=== PATIENT | female | born 1965 | race Caucasian/White ===

== ENCOUNTER → 2020-05-04 13:20 | Outpatient (CLI) | payer OTHER, MEDICAID, SELFPAY ==
--- NOTE | 2020-05-04 | DI.CT.S_ITS ---
PROCEDURE: CT UE RT WO CON INDICATIONS: PRIMARY OSTEOARTHRITIS, RIGHT SHOULDER TECHNIQUE: Noncontrast 1-1.5 mm thick sections acquired from the acromioclavicular joint to the inferior scapula, with coronal and sagittal reformatting. COMPARISON: None. FINDINGS: Image quality: Excellent. Bones: No fracture or bone lesion identified. There is, however, moderately severe degenerative osteoarthritic change at the glenohumeral and acromioclavicular joints. At the glenohumeral articulation there is near [id number] articulation with joint interspace measuring approximately 1 mm in maximal thickness. No effusion or intra-articular loose body is seen. Soft tissues: No abnormality found except for mild to moderate fibrous hypertrophy at the a.c. joint associated with the moderate osteoarthritis in that area. This results in narrowing of the interspace through which the supraspinatus courses, with likelihood of chronic impingement. IMPRESSION: Moderately severe to severe shoulder joint osteoarthritis most pronounced at the glenohumeral articulation. Fibrous hypertrophy projecting from the degenerated a.c. joint likely produces significant impingement against the normal course of the supraspinatus tendon portion of the rotator cuff. Dictated by: Markell Davidson M.D. on 05/04/2020 at 14:38 Approved by: Markell Davidson M.D. on 05/04/2020 at 14:42
== END ==
PROVIDERS: Referring Provider Orthopaedic Surgery; Visit Provider Orthopaedic Surgery
DX: M19.011 Primary osteoarthritis, right shoulder (principal)
CPT/HCPCS: 73200

== ENCOUNTER → 2020-06-22 13:35 | Outpatient (CLI) | payer OTHER, MEDICAID, SELFPAY ==
--- NOTE | 2020-06-22 | DI.MRI.S_ITS ---
PROCEDURE: MR SHOULDER RT WO CON INDICATIONS: Idiopathic aseptic necrosis of right shoulder TECHNIQUE: Noncontrast oblique coronal T2 fast spin echo with fat saturation, oblique sagittal T1 spin echo and T2 fast spin echo with fat saturation, axial T1 spin echo and T2 fast spin echo with fat saturation through the shoulder. COMPARISON: None. FINDINGS: Image quality: Suboptimal due to motion artifact and body habitus. Rotator cuff: Partial thickness articular sided tear of the supraspinatus critical zone probably less than 50% of tendon thickness. There is also low-grade bursal surface fraying of the supraspinatus tendon. No definite full-thickness or retracted defect identified. The infraspinatus tendon is not well seen, probably thickened although limited evaluation due to motion artifact. Teres minor appears intact. Subscapularis tendinopathy and mild thickening. No definite atrophy of the rotator cuff muscles. Fatty infiltration of the supraspinatus and infraspinatus muscles. Bones and bursae: No bone marrow contusions or fractures. Moderate acromioclavicular joint degeneration. Severe glenohumeral joint degeneration. Acromion demonstrates conventional anatomy, without an os acromiale. Mild subacromial-subdeltoid bursitis. Capsule and soft tissues: Labrum: Incidental sublabral foramen. Circumferential fraying of the labrum is present without definite intrasubstance fluid signal intensity.. Long head of the biceps tendon intact. Partial obliteration of the subcoracoid fat. Coracohumeral ligament intact. IMPRESSION: Partial-thickness articular sided tear of the supraspinatus tendon at the critical zone. Additional low-grade bursal surface fraying of the supraspinatus Infraspinatus and subscapularis tendinopathy. Suboptimal evaluation given motion artifact and patient body habitus. Severe osteoarthritis. Mild subacromial-subdeltoid bursitis Circumferential probably chronic/degenerative fraying of the labrum. Dictated by: Giovani Lozoya M.D. on 06/22/2020 at 15:10 Approved by: Giovani Lozoya M.D. on 06/22/2020 at 15:25
== END ==
PROVIDERS: Referring Provider Orthopaedic Surgery; Visit Provider Orthopaedic Surgery
DX: M87.011 Idiopathic aseptic necrosis of right shoulder (principal); M75.111 Incomplete rotator cuff tear or rupture of right shoulder, not specified as traumatic; M19.011 Primary osteoarthritis, right shoulder; M75.51 Bursitis of right shoulder
CPT/HCPCS: 73221

== ENCOUNTER 2021-10-17 10:30 | Outpatient (RCR) | payer OTHER, MEDICAID, SELFPAY ==
--- NOTE | 2021-07-05 16:00 | PT.OPPOC ---
Physical, Occupational & Speech Therapy At [facility] Current Diagnoses Primary osteoarthritis, right shoulder (07/05/21) Other specific joint derangements of unspecified shoulder, not elsewhere classified (07/05/21) Incomplete rotator cuff tear or rupture of right shoulder, not specified as traumatic (07/05/21) Visit Care Team Role Provider Type Cliff Murphy MD Attending Provider Non-Staff Family Provider Primary Care Provider Referring Provider Specialty: Family Practice Address: [address] [place] [address], [id number] Email: Plan Of Care PT-OP-T Assessment and Plan Start: 07/01/21 10:42 Freq: Status: Active Protocol: Document 07/05/21 13:00 AMB (Rec: 07/06/21 10:35 AMB [email or web address]) Physical Therapy Assessment Rehab Potential Rehabilitation Potential Good Evaluation Complexity Number of Personal Factors/Comorbidities 1-2 Number of Body Systems Impaired 3 Clinical Presentation at Evaluation Evolving Impairments Impairments Functional Activities,Pain,ROM ,Strength Goals Two Impairment shoulder ROM limited Short Term Goal (STG) Snehal will improve her shoulder PROM flexion to 130 degrees. STG Duration 4 weeks Usp Goal (LTG) Snehal will improve her shoulder AROM flexion to 130 degrees so that she can reach for objects above her head without pain. LTG Duration 8 weeks One Impairment Centrifugal Separator weakness Short Term Goal (STG) Snehal will improve her R engineering assistant strength to 30#. STG Duration 4 weeks Usp Goal (LTG) Snehal will improve her engineering assistant strength so that she can hold her phone without dropping it. LTG Duration 8 weeks Assessment Summary Assessment The patient appears to have a developmental disability and there was limited information available to review and she was unable to provide a detailed history into her right shoulder pain. This therapist was able to review a MRI from a year ago which was ordered for aseptic necrosis of right shoulder. Overall she is very limited in her shoulder range and strength. She denies neck history or carpal tunnel history but her engineering assistant strength is extremely limited and she complains of whole hand going to sleep that is quite limiting. Extensive time during evaluation was spent helping patient fill out paperwork necessary for her insurance to authorize further treatment, so a full evaluation was not performed due to time restrictions. She will benefit from physical therapy for further evaluation of her hand weakness/tingling and to progress exercises to improve her right shoulder range of motion and strength. Physical Therapy Plan Frequency and Duration Frequency of Treatment 2x/Week Duration of Treatment 8 weeks Plan of Care Start Date 07/05/21 Plan of Care End Date 08/30/21 Therapeutic Interventions Therapeutic Interventions Home Exercise Program,Manual Therapy,Neuromuscular Re- education,Self-Care/Home Management,Therapeutic Activities,Therapeutic Exercises Modalities Cold Pack/Ice Massage,Electric Stimulation,Hot Packs Next Visit Focus/Plan Next Note Type Treatment Note Next Visit Plan Establish HEP focusing on GH ROM first/ AAROM, pendulums? Plan of Care Dates Plan of Care Start Date 07/05/21 Plan of Care End Date 08/30/21 Electronically Signed by: Patricia Van, PT 07/06/21 1038 Please Sign and Return: I have reviewed this Plan of Care and certify that the skilled therapy services above are required to meet the patient?s needs. Physician Signature Date Printed Name and Credentials Clinical Instructor Signature Printed Name and Credentials
--- NOTE | 2021-07-05 16:00 | PT.OIE ---
Current Diagnoses Primary osteoarthritis, right shoulder (07/05/21) Other specific joint derangements of unspecified shoulder, not elsewhere classified (07/05/21) Incomplete rotator cuff tear or rupture of right shoulder, not specified as traumatic (07/05/21) Visit Care Team Role Provider Type Cliff Murphy MD Attending Provider Non-Staff Family Provider Primary Care Provider Referring Provider Specialty: Family Practice Address: [address] [place] [address] Email: Physical Therapy Initial Evaluation PT-OP-A Visit Information Start: 07/01/21 10:42 Freq: Status: Active Protocol: Document 07/05/21 13:00 AMB (Rec: 07/06/21 09:03 AMB [email or web address]) Out-Patient Physical Therapy Visit Information Visit Information Visit Type Initial Evaluation Visit Start Time 13:00 Visit Stop Time 13:45 Total Visit Minutes 45 Visit Number 1 PT-OP-B Current Condition Start: 07/01/21 10:42 Freq: Status: Active Protocol: Document 07/05/21 12:58 AMB (Rec: 07/05/21 13:33 AMB [id number]) Current Condition History of Current Condition Onset Date ~2018, pt unsure Current Complaints R shoulder History of Current Condition Pain started a couple of years ago after hip replacements and using the walker more. Feels like it got a bit better with taking tylenol. Reports intermittent tingling from the shoulder down in the hand, puts the hand to sleep limited with gripping because of that. Pt does have a caregiver who drives for her, helps her with dressing/ bathing. RHD. Pt has a difficult time providing a history and attends the appointment without her caregiver or any family. Prior Treatments and Tests MRI 06/17 showed partial thickness supraspinatus tear, severe osteoarthritis, mild bursitis, fraying of the labrum, infraspinatus and sbuscapularis tendonopathy. Treatment Goals Patient/Caregiver Goals Pt would like to sweet pickle maker something heavier than a glass of water, be able to put on clothes easier. Personal Factors Other Personal Factors That May Effect R and L THAs, asthma, Therapy/Recovery PT-OP-C Subjective Start: 07/01/21 10:42 Freq: Status: Active Protocol: Document 07/05/21 13:00 AMB (Rec: 07/06/21 10:14 AMB [email or web address]) Patient Questionnaires Quick Dash- Upper Extremity Quick Dash UE Score 66 Quick Dash UE Impairment 60 to 79% Impaired (Score 60- 79) PT-OP-G Mobility & Gait Start: 07/01/21 10:42 Freq: Status: Active Protocol: Document 07/05/21 13:00 AMB (Rec: 07/06/21 10:36 AMB [email or web address]) OP Gait Assessment Comments Gait Comments Magdalena ambulates with bilateral walking sticks, she states this does not increase her shoulder pain. PT-OP-J Posture/Palpation/Skin Start: 07/01/21 10:42 Freq: Status: Active Protocol: Document 07/05/21 13:00 AMB (Rec: 07/06/21 10:14 AMB [email or web address]) Palpation Assessment Location One Palpation Location R shoulder Palpation Findings Muscle Guarding,Tenderness Palpation Details Tenderness throughout shoulder mostly at anterior shoulder PT-OP-K Range of Motion Start: 07/01/21 10:42 Freq: Status: Active Protocol: Document 07/05/21 13:00 AMB (Rec: 07/06/21 10:14 AMB [email or web address]) Shoulder Goniometric Range of Motion Shoulder Right Active Testing Position Sitting Flexion 70 Extension 40 Abduction 40 Left Active Shoulder ROM WFL Yes Testing Position Sitting Right Passive Testing Position HOB elevated Flexion 90 Abduction 45 External Rotation at 45 degrees 5 Abduction Internal Rotation 70 PT-OP-M Strength Start: 07/01/21 10:42 Freq: Status: Active Protocol: Document 07/05/21 13:00 AMB (Rec: 07/06/21 10:15 AMB [email or web address]) Hand Director Regulatory Affairs/Pinch Strength Hand Dominance Hand Dominance Right Hand Strength Right Director Regulatory Affairs (lbs) 0 PT-OP-T Assessment and Plan Start: 07/01/21 10:42 Freq: Status: Active Protocol: Document 07/05/21 13:00 AMB (Rec: 07/06/21 10:35 AMB [email or web address]) Physical Therapy Assessment Rehab Potential Rehabilitation Potential Good Evaluation Complexity Number of Personal Factors/Comorbidities 1-2 Number of Body Systems Impaired 3 Clinical Presentation at Evaluation Evolving Impairments Impairments Functional Activities,Pain,ROM ,Strength Goals Two Impairment shoulder ROM limited Short Term Goal (STG) Snehal will improve her shoulder PROM flexion to 130 degrees. STG Duration 4 weeks Glass Embosser Goal (LTG) Snehal will improve her shoulder AROM flexion to 130 degrees so that she can reach for objects above her head without pain. LTG Duration 8 weeks One Impairment Director Regulatory Affairs weakness Short Term Goal (STG) Snehal will improve her R education intern strength to 30#. STG Duration 4 weeks Residential Goal (LTG) Snehal will improve her education intern strength so that she can hold her phone without dropping it. LTG Duration 8 weeks Assessment Summary Assessment The patient appears to have a developmental disability and there was limited information available to review and she was unable to provide a detailed history into her right shoulder pain. This therapist was able to review a MRI from a year ago which was ordered for aseptic necrosis of right shoulder. Overall she is very limited in her shoulder range and strength. She denies neck history or carpal tunnel history but her education intern strength is extremely limited and she complains of whole hand going to sleep that is quite limiting. Extensive time during evaluation was spent helping patient fill out paperwork necessary for her insurance to authorize further treatment, so a full evaluation was not performed due to time restrictions. She will benefit from physical therapy for further evaluation of her hand weakness/tingling and to progress exercises to improve her right shoulder range of motion and strength. Physical Therapy Plan Frequency and Duration Frequency of Treatment 2x/Week Duration of Treatment 8 weeks Plan of Care Start Date 07/05/21 Plan of Care End Date 08/30/21 Therapeutic Interventions Therapeutic Interventions Home Exercise Program,Manual Therapy,Neuromuscular Re- education,Self-Care/Home Management,Therapeutic Activities,Therapeutic Exercises Modalities Cold Pack/Ice Massage,Electric Stimulation,Hot Packs Next Visit Focus/Plan Next Note Type Treatment Note Next Visit Plan Establish HEP focusing on GH ROM first/ AAROM, pendulums?
--- NOTE | 2021-07-11 13:47 | PT.OTN ---
Current Diagnoses Primary osteoarthritis, right shoulder (07/11/21) Other specific joint derangements of unspecified shoulder, not elsewhere classified (07/11/21) Incomplete rotator cuff tear or rupture of right shoulder, not specified as traumatic (07/11/21) Physical Therapy Treatment Note PT-OP-A Visit Information Start: 07/01/21 10:42 Freq: Status: Active Protocol: Document 07/11/21 13:04 SP (Rec: 07/11/21 13:48 SP [id number]) Out-Patient Physical Therapy Visit Information Visit Information Visit Type Treatment Note Visit Start Time 13:04 Visit Stop Time 13:47 Total Visit Minutes 43 Visit Number 2 Number of FIELD SEISMOLOGIST Visits 1 PT-OP-B Current Condition Start: 07/01/21 10:42 Freq: Status: Active Protocol: Document 07/05/21 12:58 AMB (Rec: 07/05/21 13:33 AMB [id number]) Current Condition History of Current Condition Onset Date ~2018, pt unsure Current Complaints R shoulder History of Current Condition Pain started a couple of years ago after hip replacements and using the walker more. Feels like it got a bit better with taking tylenol. Reports intermittent tingling from the shoulder down in the hand, puts the hand to sleep limited with gripping because of that. Pt does have a caregiver who drives for her, helps her with dressing/ bathing. RHD. Pt has a difficult time providing a history and attends the appointment without her caregiver or any family. Prior Treatments and Tests MRI 06/17 showed partial thickness supraspinatus tear, severe osteoarthritis, mild bursitis, fraying of the labrum, infraspinatus and sbuscapularis tendonopathy. 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 Personal Factors Other Personal Factors That May Effect R and L THAs, asthma, Therapy/Recovery PT-OP-C Subjective Start: 07/01/21 10:42 Freq: Status: Active Protocol: Document 07/11/21 13:04 SP (Rec: 07/11/21 13:48 SP [id number]) OP-PT Subjective Patient Comments Patient Comments Pt states has a caregiver that drives her and needs paper signed stating attended tx for her caregiver to be pain for mileage. Pt reports doesn't do well laying down, has to sleep on wedge and pillows due to congestion and hard time breathing. PT-OP-G Mobility & Gait Start: 07/01/21 10:42 Freq: Status: Active Protocol: Document 07/05/21 13:00 AMB (Rec: 07/06/21 10:36 AMB [email or web address]) OP Gait Assessment Comments Gait Comments Magdalena ambulates with bilateral walking sticks, she states this does not increase her shoulder pain. PT-OP-J Posture/Palpation/Skin Start: 07/01/21 10:42 Freq: Status: Active Protocol: Document 07/05/21 13:00 AMB (Rec: 07/06/21 10:14 AMB [email or web address]) Palpation Assessment Location One Palpation Location R shoulder Palpation Findings Muscle Guarding,Tenderness Palpation Details Tenderness throughout shoulder mostly at anterior shoulder PT-OP-K Range of Motion Start: 07/01/21 10:42 Freq: Status: Active Protocol: Document 07/05/21 13:00 AMB (Rec: 07/06/21 10:14 AMB [email or web address]) Shoulder Goniometric Range of Motion Shoulder Right Active Testing Position Sitting Flexion 70 Extension 40 Abduction 40 Left Active Shoulder ROM WFL Yes Testing Position Sitting Right Passive Testing Position HOB elevated Flexion 90 Abduction 45 External Rotation at 45 degrees 5 Abduction Internal Rotation 70 PT-OP-M Strength Start: 07/01/21 10:42 Freq: Status: Active Protocol: Document 07/05/21 13:00 AMB (Rec: 07/06/21 10:15 AMB [email or web address]) Hand Customer Service Receptionist/Pinch Strength Hand Dominance Hand Dominance Right Hand Strength Right Customer Service Receptionist (lbs) 0 PT-OP-Q Treatments Start: 07/01/21 10:42 Freq: Status: Active Protocol: Document 07/11/21 13:04 SP (Rec: 07/11/21 13:48 SP [id number]) Therapeutic Exercises Sitting Exercises protraction wand Side bilateral Resistance AAROM Equipment Used trek poles Reps/Minutes 5 reps x2 sets Comments painfree range, limited range seated posture Equipment Used 18 chair Reps/Minutes 5 sec hold x5, x2 sets Comments cued chest lift tall posture forward trunk over pelvis table slides Sitting Exercise Name flex, scaption Side right Equipment Used pillow case Reps/Minutes 2x5 Comments cued slow ER wand Side right Resistance AAROM Equipment Used trek pole Reps/Minutes 2x5 reps Comments cued tall posture Manual Therapy Treatment Soft Tissue Mobilization STMs Body Location R pec, deltoid, UT Mobilization Type Myofascial Release,Strumming, Sustained Pressure Intensity/Depth Superficial Body Position Sitting Comments Pt doesn't respond well to manual, very sensitive to touch. Decided to discontinue post feedback. Joint Mobilizations GH jt Joint R Direction A<>P, sup<> inf glide Grade I Body Position seated Reps/Duration 1 min Comments Pt was guarding, provided very light gentle GH mobes, gentle light touch AROM in sitting decided to discontinue manual due to discomfort feedback. PT-OP-T Assessment and Plan Start: 07/01/21 10:42 Freq: Status: Active Protocol: Document 07/11/21 13:04 SP (Rec: 07/11/21 13:48 SP [id number]) Physical Therapy Assessment Goals Two Impairment shoulder ROM limited Short Term Goal (STG) Snehal will improve her shoulder PROM flexion to 130 degrees. STG Duration 4 weeks Supermarket Manager Goal (LTG) Snehal will improve her shoulder AROM flexion to 130 degrees so that she can reach for objects above her head without pain. LTG Duration 8 weeks One Impairment Customer Service Receptionist weakness Short Term Goal (STG) Snehal will improve her R carton maker strength to 30#. STG Duration 4 weeks Detention Goal (LTG) Snehal will improve her carton maker strength so that she can hold her phone without dropping it. LTG Duration 8 weeks Assessment Summary Assessment Pt did not respond well to modified elevated supine positioning, hard time breathing in increase congestion coughing. Sensitive to touch and light pressure STMs and GH jt mobes so discontinued. Pt responded well to initiated table slides , seated wand ER and forward press outs to tolerant range < 45 deg FF range. Measure range performing next tx. Physical Therapy Plan Frequency and Duration Frequency of Treatment 2x/Week Duration of Treatment 8 weeks Plan of Care Start Date 07/05/21 Plan of Care End Date 08/30/21 Therapeutic Interventions Therapeutic Interventions Home Exercise Program,Manual Therapy,Neuromuscular Re- education,Self-Care/Home Management,Therapeutic Activities,Therapeutic Exercises Modalities Cold Pack/Ice Massage,Electric Stimulation,Hot Packs Next Visit Focus/Plan Next Note Type Treatment Note Next Visit Plan Assess response and review AAROM seated HEP initated last tx. Add pendulums. She will benefit from physical therapy for further evaluation of her R hand weakness/tingling and to progress exercises to improve her right shoulder range of motion and strength. POC: establish HEP focusing on GH ROM first/ AAROM
--- NOTE | 2021-07-13 14:40 | PT.OTN ---
Current Diagnoses Primary osteoarthritis, right shoulder (07/13/21) Other specific joint derangements of unspecified shoulder, not elsewhere classified (07/13/21) Incomplete rotator cuff tear or rupture of right shoulder, not specified as traumatic (07/13/21) Physical Therapy Treatment Note PT-OP-A Visit Information Start: 07/01/21 10:42 Freq: Status: Active Protocol: Document 07/13/21 14:32 OF (Rec: 07/13/21 14:40 OF [id number]) Out-Patient Physical Therapy Visit Information Visit Information Visit Type Treatment Note Visit Start Time 13:45 Visit Stop Time 14:28 Total Visit Minutes 43 Visit Number 3 PT-OP-B Current Condition Start: 07/01/21 10:42 Freq: Status: Active Protocol: Document 07/05/21 12:58 AMB (Rec: 07/05/21 13:33 AMB [id number]) Current Condition History of Current Condition Onset Date ~2018, pt unsure Current Complaints R shoulder History of Current Condition Pain started a couple of years ago after hip replacements and using the walker more. Feels like it got a bit better with taking tylenol. Reports intermittent tingling from the shoulder down in the hand, puts the hand to sleep limited with gripping because of that. Pt does have a caregiver who drives for her, helps her with dressing/ bathing. RHD. Pt has a difficult time providing a history and attends the appointment without her caregiver or any family. Prior Treatments and Tests MRI 06/17 showed partial thickness supraspinatus tear, severe osteoarthritis, mild bursitis, fraying of the labrum, infraspinatus and sbuscapularis tendonopathy. Treatment Goals Patient/Caregiver Goals Pt would like to cook pickled meat something heavier than a glass of water, be able to put on clothes easier. Personal Factors Other Personal Factors That May Effect R and L THAs, asthma, Therapy/Recovery PT-OP-C Subjective Start: 07/01/21 10:42 Freq: Status: Active Protocol: Document 07/13/21 14:32 OF (Rec: 07/13/21 14:40 OF [id number]) OP-PT Subjective Patient Comments Patient Comments pt states her shldr has been sore, attempting exercises at home Patient Reported Progress Improving OP-PT Pain Assessment Pain Assessment Grid Paper Pain Assessment Grid Completed No: pt unable to rate pain in R UE, states she has pain in hand, elbow and shld PT-OP-G Mobility & Gait Start: 07/01/21 10:42 Freq: Status: Active Protocol: Document 07/05/21 13:00 AMB (Rec: 07/06/21 10:36 AMB [email or web address]) OP Gait Assessment Comments Gait Comments Magdalena ambulates with bilateral walking sticks, she states this does not increase her shoulder pain. PT-OP-J Posture/Palpation/Skin Start: 07/01/21 10:42 Freq: Status: Active Protocol: Document 07/05/21 13:00 AMB (Rec: 07/06/21 10:14 AMB [email or web address]) Palpation Assessment Location One Palpation Location R shoulder Palpation Findings Muscle Guarding,Tenderness Palpation Details Tenderness throughout shoulder mostly at anterior shoulder PT-OP-K Range of Motion Start: 07/01/21 10:42 Freq: Status: Active Protocol: Document 07/05/21 13:00 AMB (Rec: 07/06/21 10:14 AMB [email or web address]) Shoulder Goniometric Range of Motion Shoulder Right Active Testing Position Sitting Flexion 70 Extension 40 Abduction 40 Left Active Shoulder ROM WFL Yes Testing Position Sitting Right Passive Testing Position HOB elevated Flexion 90 Abduction 45 External Rotation at 45 degrees 5 Abduction Internal Rotation 70 PT-OP-M Strength Start: 07/01/21 10:42 Freq: Status: Active Protocol: Document 07/05/21 13:00 AMB (Rec: 07/06/21 10:15 AMB [email or web address]) Hand Respiratory Director/Pinch Strength Hand Dominance Hand Dominance Right Hand Strength Right Respiratory Director (lbs) 0 PT-OP-Q Treatments Start: 07/01/21 10:42 Freq: Status: Active Protocol: Document 07/13/21 14:32 OF (Rec: 07/13/21 14:40 OF [id number]) Therapeutic Exercises Sitting Exercises gripping Side right Equipment Used soft ball Reps/Minutes 5min Comments cues for palmar equal opportunity officer, closing hand pulleys Side bilateral Reps/Minutes 6min Comments cues for L UE assist to move R UE shldr flexion Side right Resistance AAROM with assist from therapist for 90-100degrees Equipment Used trek pole Reps/Minutes 5min protraction wand Side bilateral Resistance AAROM Equipment Used trek poles Reps/Minutes 5 reps x2 sets Comments painfree range, limited range seated posture Reps/Minutes 5 sec hold x5, x2 sets Comments cues for shldr retraction ER wand Side right Resistance AAROM Equipment Used trek pole Reps/Minutes 2x5 reps Comments cued tall posture Manual Therapy Treatment Nerve Glides R UE Comments Attempting to assess for neural tension, pt unable to tolerate any position with UE Self-Care/Home Management Treatment Education Patient Education Home Exercise Program,Pain Management Other Education pt advised to attempt pain free AAROM or <4/10 PT-OP-T Assessment and Plan Start: 07/01/21 10:42 Freq: Status: Active Protocol: Document 07/13/21 14:32 OF (Rec: 07/13/21 14:40 OF [id number]) Physical Therapy Assessment Rehab Potential Rehabilitation Potential Good Evaluation Complexity Number of Personal Factors/Comorbidities 1-2 Number of Body Systems Impaired 1-2 Clinical Presentation at Evaluation Stable Impairments Impairments Pain,ROM,Soft Tissue Mobility, Strength Other Impairments pt has difficulty tolerating stretch, pain, or motion to R UE Goals Two Impairment shoulder ROM limited Short Term Goal (STG) Snehal will improve her shoulder PROM flexion to 130 degrees. STG Duration 4 weeks Fresh Food Manager Goal (LTG) Snehal will improve her shoulder AROM flexion to 130 degrees so that she can reach for objects above her head without pain. LTG Duration 8 weeks One Impairment Respiratory Director weakness Short Term Goal (STG) Snehal will improve her R equal opportunity officer strength to 30#. STG Duration 4 weeks Fresh Food Manager Goal (LTG) Snehal will improve her equal opportunity officer strength so that she can hold her phone without dropping it. LTG Duration 8 weeks Progress Towards Goals Progress Towards Goals Slow Progress due to Activity Tolerance Assessment Summary Assessment Snehal is limited by reported pain in hand, forearm and shldr. She has trouble with hand exercises, shldr PROM, AAROM, and is unable to tolerate positioning for neural tension testing Physical Therapy Plan Frequency and Duration Frequency of Treatment 2x/Week Duration of Treatment 8 weeks Plan of Care Start Date 07/05/21 Plan of Care End Date 08/30/21 Therapeutic Interventions Therapeutic Interventions Home Exercise Program,Manual Therapy,Neuromuscular Re- education,Self-Care/Home Management,Therapeutic Activities,Therapeutic Exercises Modalities Cold Pack/Ice Massage,Electric Stimulation,Hot Packs Next Visit Focus/Plan Next Note Type Treatment Note Next Visit Plan progress AAROM/PROM include equal opportunity officer/UE strengthening. Assess c spine and neural tension if pt tolerates
--- NOTE | 2021-07-19 13:47 | PT.OTN ---
Current Diagnoses Primary osteoarthritis, right shoulder (07/19/21) Other specific joint derangements of unspecified shoulder, not elsewhere classified (07/19/21) Incomplete rotator cuff tear or rupture of right shoulder, not specified as traumatic (07/19/21) Physical Therapy Treatment Note PT-OP-A Visit Information Start: 07/01/21 10:42 Freq: Status: Active Protocol: Document 07/19/21 13:00 AMB (Rec: 07/19/21 13:46 AMB [id number]) Out-Patient Physical Therapy Visit Information Visit Information Visit Type Treatment Note Visit Start Time 13:00 Visit Stop Time 13:45 Total Visit Minutes 45 Visit Number 4 PT-OP-B Current Condition Start: 07/01/21 10:42 Freq: Status: Active Protocol: Document 07/05/21 12:58 AMB (Rec: 07/05/21 13:33 AMB [id number]) Current Condition History of Current Condition Onset Date ~2018, pt unsure Current Complaints R shoulder History of Current Condition Pain started a couple of years ago after hip replacements and using the walker more. Feels like it got a bit better with taking tylenol. Reports intermittent tingling from the shoulder down in the hand, puts the hand to sleep limited with gripping because of that. Pt does have a caregiver who drives for her, helps her with dressing/ bathing. RHD. Pt has a difficult time providing a history and attends the appointment without her caregiver or any family. Prior Treatments and Tests MRI 06/17 showed partial thickness supraspinatus tear, severe osteoarthritis, mild bursitis, fraying of the labrum, infraspinatus and sbuscapularis tendonopathy. Treatment Goals Patient/Caregiver Goals Pt would like to molded goods spot picker something heavier than a glass of water, be able to put on clothes easier. Personal Factors Other Personal Factors That May Effect R and L THAs, asthma, Therapy/Recovery PT-OP-C Subjective Start: 07/01/21 10:42 Freq: Status: Active Protocol: Document 07/19/21 13:00 AMB (Rec: 07/19/21 13:46 AMB [id number]) OP-PT Subjective Patient Comments Patient Comments Pt states she is doing exercises about once a day, not forcing it into pain. PT-OP-G Mobility & Gait Start: 07/01/21 10:42 Freq: Status: Active Protocol: Document 07/05/21 13:00 AMB (Rec: 07/06/21 10:36 AMB [email or web address]) OP Gait Assessment Comments Gait Comments Magdalena ambulates with bilateral walking sticks, she states this does not increase her shoulder pain. PT-OP-J Posture/Palpation/Skin Start: 07/01/21 10:42 Freq: Status: Active Protocol: Document 07/05/21 13:00 AMB (Rec: 07/06/21 10:14 AMB [email or web address]) Palpation Assessment Location One Palpation Location R shoulder Palpation Findings Muscle Guarding,Tenderness Palpation Details Tenderness throughout shoulder mostly at anterior shoulder PT-OP-K Range of Motion Start: 07/01/21 10:42 Freq: Status: Active Protocol: Document 07/05/21 13:00 AMB (Rec: 07/06/21 10:14 AMB [email or web address]) Shoulder Goniometric Range of Motion Shoulder Right Active Testing Position Sitting Flexion 70 Extension 40 Abduction 40 Left Active Shoulder ROM WFL Yes Testing Position Sitting Right Passive Testing Position HOB elevated Flexion 90 Abduction 45 External Rotation at 45 degrees 5 Abduction Internal Rotation 70 PT-OP-M Strength Start: 07/01/21 10:42 Freq: Status: Active Protocol: Document 07/05/21 13:00 AMB (Rec: 07/06/21 10:15 AMB [email or web address]) Hand Immigration Coordinator/Pinch Strength Hand Dominance Hand Dominance Right Hand Strength Right Immigration Coordinator (lbs) 0 PT-OP-Q Treatments Start: 07/01/21 10:42 Freq: Status: Active Protocol: Document 07/19/21 13:00 AMB (Rec: 07/19/21 13:46 AMB [id number]) Therapeutic Exercises Sitting Exercises cervical ROM Sitting Exercise Name flexion/extension, rotation Reps/Minutes 2 ea elbow flexion Resistance AROM Reps/Minutes 2x10 gripping Side right Equipment Used AROM/towel Reps/Minutes 5min Comments cues for palmar glycerin operator, closing hand pulleys Side bilateral Reps/Minutes 6min Comments cues for L UE assist to move R UE table slides Sitting Exercise Name flex, scaption Side right Equipment Used pillow case Reps/Minutes 2x5 Comments cued slow, tolerable ROM PT-OP-T Assessment and Plan Start: 07/01/21 10:42 Freq: Status: Active Protocol: Document 07/19/21 13:00 AMB (Rec: 07/19/21 13:46 [facility] [id number]) Physical Therapy Assessment Assessment Summary Assessment Cervical extension increased shoulder pain and hand tingling. Pt was able to glycerin operator the hand without pain. Physical Therapy Plan Next Visit Focus/Plan Next Note Type Treatment Note Next Visit Plan Continue shoulder ROM, progress hand/elbow strengthening
--- NOTE | 2021-07-21 15:02 | PT.OTN ---
Current Diagnoses Primary osteoarthritis, right shoulder (07/21/21) Other specific joint derangements of unspecified shoulder, not elsewhere classified (07/21/21) Incomplete rotator cuff tear or rupture of right shoulder, not specified as traumatic (07/21/21) Physical Therapy Treatment Note PT-OP-A Visit Information Start: 07/01/21 10:42 Freq: Status: Active Protocol: Document 07/21/21 13:45 AMB (Rec: 07/21/21 14:45 AMB [id number]) Out-Patient Physical Therapy Visit Information Visit Information Visit Type Treatment Note Visit Start Time 13:45 Visit Stop Time 14:30 Total Visit Minutes 45 Visit Number 5 PT-OP-B Current Condition Start: 07/01/21 10:42 Freq: Status: Active Protocol: Document 07/05/21 12:58 AMB (Rec: 07/05/21 13:33 AMB [id number]) Current Condition History of Current Condition Onset Date ~2018, pt unsure Current Complaints R shoulder History of Current Condition Pain started a couple of years ago after hip replacements and using the walker more. Feels like it got a bit better with taking tylenol. Reports intermittent tingling from the shoulder down in the hand, puts the hand to sleep limited with gripping because of that. Pt does have a caregiver who drives for her, helps her with dressing/ bathing. RHD. Pt has a difficult time providing a history and attends the appointment without her caregiver or any family. Prior Treatments and Tests MRI 06/17 showed partial thickness supraspinatus tear, severe osteoarthritis, mild bursitis, fraying of the labrum, infraspinatus and sbuscapularis tendonopathy. Treatment Goals Patient/Caregiver Goals Pt would like to fern picker something heavier than a glass of water, be able to put on clothes easier. Personal Factors Other Personal Factors That May Effect R and L THAs, asthma, Therapy/Recovery PT-OP-C Subjective Start: 07/01/21 10:42 Freq: Status: Active Protocol: Document 07/21/21 13:45 AMB (Rec: 07/21/21 14:45 AMB [id number]) OP-PT Subjective Patient Comments Patient Comments Pt states she hasn't been holding her phone with her right hand because of the numbness, shoulder is a bit sore. PT-OP-G Mobility & Gait Start: 07/01/21 10:42 Freq: Status: Active Protocol: Document 07/05/21 13:00 AMB (Rec: 07/06/21 10:36 AMB [email or web address]) OP Gait Assessment Comments Gait Comments Magdalena ambulates with bilateral walking sticks, she states this does not increase her shoulder pain. PT-OP-J Posture/Palpation/Skin Start: 07/01/21 10:42 Freq: Status: Active Protocol: Document 07/05/21 13:00 AMB (Rec: 07/06/21 10:14 AMB [email or web address]) Palpation Assessment Location One Palpation Location R shoulder Palpation Findings Muscle Guarding,Tenderness Palpation Details Tenderness throughout shoulder mostly at anterior shoulder PT-OP-K Range of Motion Start: 07/01/21 10:42 Freq: Status: Active Protocol: Document 07/05/21 13:00 AMB (Rec: 07/06/21 10:14 AMB [email or web address]) Shoulder Goniometric Range of Motion Shoulder Right Active Testing Position Sitting Flexion 70 Extension 40 Abduction 40 Left Active Shoulder ROM WFL Yes Testing Position Sitting Right Passive Testing Position HOB elevated Flexion 90 Abduction 45 External Rotation at 45 degrees 5 Abduction Internal Rotation 70 PT-OP-M Strength Start: 07/01/21 10:42 Freq: Status: Active Protocol: Document 07/05/21 13:00 AMB (Rec: 07/06/21 10:15 AMB [email or web address]) Hand Railroad Car Loader/Pinch Strength Hand Dominance Hand Dominance Right Hand Strength Right Railroad Car Loader (lbs) 0 PT-OP-Q Treatments Start: 07/01/21 10:42 Freq: Status: Active Protocol: Document 07/21/21 13:45 AMB (Rec: 07/21/21 14:45 AMB [id number]) Therapeutic Exercises Sitting Exercises shoulder blade squeeze Reps/Minutes 10 elbow flexion Resistance 1# Reps/Minutes 2x10 pulleys Side bilateral Reps/Minutes 6min Comments cues for L UE assist to move R UE Standing Exercises wall walking Standing Exercise Name scaption Reps/Minutes 5 t band extension Standing Exercise Name shoulder extension Reps/Minutes 10 shoulder circles Reps/Minutes 10 PT-OP-T Assessment and Plan Start: 07/01/21 10:42 Freq: Status: Active Protocol: Document 07/21/21 13:45 AMB (Rec: 07/21/21 14:45 AMB [id number]) Physical Therapy Assessment Goals Two Impairment shoulder ROM limited Short Term Goal (STG) Snehal will improve her shoulder PROM flexion to 130 degrees. STG Duration 4 weeks Penitentiary Goal (LTG) Snehal will improve her shoulder AROM flexion to 130 degrees so that she can reach for objects above her head without pain. LTG Duration 8 weeks One Impairment Railroad Car Loader weakness Short Term Goal (STG) Snehal will improve her R cotton baler strength to 30#. STG Duration 4 weeks Brewing Director Goal (LTG) Snehal will improve her cotton baler strength so that she can hold her phone without dropping it. LTG Duration 8 weeks Assessment Summary Assessment Snehal feels like she can move her shoulder better when standing vs sitting, so encouraged her in HEP of wall walking and t band extension. Physical Therapy Plan Next Visit Focus/Plan Next Note Type Treatment Note Next Visit Plan Continue shoulder ROM, progress hand/elbow strengthening
--- NOTE | 2021-07-27 15:17 | PT.OTN ---
Current Diagnoses Primary osteoarthritis, right shoulder (07/27/21) Other specific joint derangements of unspecified shoulder, not elsewhere classified (07/27/21) Incomplete rotator cuff tear or rupture of right shoulder, not specified as traumatic (07/27/21) Physical Therapy Treatment Note PT-OP-A Visit Information Start: 07/01/21 10:42 Freq: Status: Active Protocol: Document 07/27/21 15:09 OF (Rec: 07/27/21 15:16 OF [email or web address]) Out-Patient Physical Therapy Visit Information Visit Information Visit Type Treatment Note Visit Start Time 14:30 Visit Stop Time 15:08 Total Visit Minutes 38 Visit Number 6 PT-OP-B Current Condition Start: 07/01/21 10:42 Freq: Status: Active Protocol: Document 07/05/21 12:58 AMB (Rec: 07/05/21 13:33 AMB [id number]) Current Condition History of Current Condition Onset Date ~2018, pt unsure Current Complaints R shoulder History of Current Condition Pain started a couple of years ago after hip replacements and using the walker more. Feels like it got a bit better with taking tylenol. Reports intermittent tingling from the shoulder down in the hand, puts the hand to sleep limited with gripping because of that. Pt does have a caregiver who drives for her, helps her with dressing/ bathing. RHD. Pt has a difficult time providing a history and attends the appointment without her caregiver or any family. Prior Treatments and Tests MRI 06/17 showed partial thickness supraspinatus tear, severe osteoarthritis, mild bursitis, fraying of the labrum, infraspinatus and sbuscapularis tendonopathy. Treatment Goals Patient/Caregiver Goals Pt would like to fiber picker something heavier than a glass of water, be able to put on clothes easier. Personal Factors Other Personal Factors That May Effect R and L THAs, asthma, Therapy/Recovery PT-OP-C Subjective Start: 07/01/21 10:42 Freq: Status: Active Protocol: Document 07/27/21 15:09 OF (Rec: 07/27/21 15:16 OF [email or web address]) OP-PT Subjective Patient Comments Patient Comments pt states she has had good success with HEP Patient Reported Progress Improving OP-PT Pain Assessment Pain Assessment Grid Paper Pain Assessment Grid Completed No: pt denies shldr pain today PT-OP-G Mobility & Gait Start: 07/01/21 10:42 Freq: Status: Active Protocol: Document 07/05/21 13:00 AMB (Rec: 07/06/21 10:36 AMB [email or web address]) OP Gait Assessment Comments Gait Comments Magdalena ambulates with bilateral walking sticks, she states this does not increase her shoulder pain. PT-OP-J Posture/Palpation/Skin Start: 07/01/21 10:42 Freq: Status: Active Protocol: Document 07/05/21 13:00 AMB (Rec: 07/06/21 10:14 AMB [email or web address]) Palpation Assessment Location One Palpation Location R shoulder Palpation Findings Muscle Guarding,Tenderness Palpation Details Tenderness throughout shoulder mostly at anterior shoulder PT-OP-K Range of Motion Start: 07/01/21 10:42 Freq: Status: Active Protocol: Document 07/05/21 13:00 AMB (Rec: 07/06/21 10:14 AMB [email or web address]) Shoulder Goniometric Range of Motion Shoulder Right Active Testing Position Sitting Flexion 70 Extension 40 Abduction 40 Left Active Shoulder ROM WFL Yes Testing Position Sitting Right Passive Testing Position HOB elevated Flexion 90 Abduction 45 External Rotation at 45 degrees 5 Abduction Internal Rotation 70 PT-OP-M Strength Start: 07/01/21 10:42 Freq: Status: Active Protocol: Document 07/05/21 13:00 AMB (Rec: 07/06/21 10:15 AMB [email or web address]) Hand Rug Dyer/Pinch Strength Hand Dominance Hand Dominance Right Hand Strength Right Rug Dyer (lbs) 0 PT-OP-Q Treatments Start: 07/01/21 10:42 Freq: Status: Active Protocol: Document 07/27/21 15:09 OF (Rec: 07/27/21 15:16 OF [email or web address]) Therapeutic Exercises Sitting Exercises shoulder blade squeeze Side bilateral Reps/Minutes 10 Comments cues to avoid elevation elbow flexion Resistance 1# Reps/Minutes 2x10 gripping Side right Equipment Used AROM/towel/raquet ball per pt request Reps/Minutes 5min Comments cues for palmar account support rep, closing hand pulleys Side bilateral Reps/Minutes 6min Comments cues for L UE assist to move R UE shldr flexion Side right Resistance AAROM with assist from therapist for 90-100degrees Equipment Used trek pole Reps/Minutes 5min protraction wand Side bilateral Resistance AAROM Equipment Used trek poles Reps/Minutes 5 reps x2 sets Comments painfree range, limited range, assist to maintain shldr elevation ER wand Side right Resistance AAROM Equipment Used trek pole Reps/Minutes 2x5 reps Comments cued tall posture Standing Exercises rows Side bilateral Resistance TB2 wall walking Standing Exercise Name scaption Reps/Minutes 5 t band extension Standing Exercise Name shoulder extension Equipment Used TB2 Reps/Minutes 10 Self-Care/Home Management Treatment Education Patient Education Home Exercise Program,Pain Management PT-OP-T Assessment and Plan Start: 07/01/21 10:42 Freq: Status: Active Protocol: Document 07/27/21 15:09 OF (Rec: 07/27/21 15:16 OF [email or web address]) Physical Therapy Assessment Rehab Potential Rehabilitation Potential Good Evaluation Complexity Number of Personal Factors/Comorbidities 1-2 Number of Body Systems Impaired 1-2 Clinical Presentation at Evaluation Stable Impairments Impairments Pain,ROM,Soft Tissue Mobility, Strength Other Impairments pt has difficulty tolerating stretch, pain, or motion to R UE Goals Two Impairment shoulder ROM limited Short Term Goal (STG) Snehal will improve her shoulder PROM flexion to 130 degrees. STG Duration 4 weeks Replanting Machine Operator Goal (LTG) Snehal will improve her shoulder AROM flexion to 130 degrees so that she can reach for objects above her head without pain. LTG Duration 8 weeks One Impairment Rug Dyer weakness Short Term Goal (STG) Snehal will improve her R account support rep strength to 30#. STG Duration 4 weeks Replanting Machine Operator Goal (LTG) Snehal will improve her account support rep strength so that she can hold her phone without dropping it. LTG Duration 8 weeks Progress Towards Goals Progress Towards Goals Progressing Toward Goals Assessment Summary Assessment Snehal states she has been feeling better at home, she requires assist for AAROM and cues for proper HEP performance. Physical Therapy Plan Frequency and Duration Frequency of Treatment 2x/Week Duration of Treatment 8 weeks Plan of Care Start Date 07/05/21 Plan of Care End Date 08/30/21 Therapeutic Interventions Therapeutic Interventions Home Exercise Program,Manual Therapy,Neuromuscular Re- education,Self-Care/Home Management,Therapeutic Activities,Therapeutic Exercises Modalities Cold Pack/Ice Massage,Electric Stimulation,Hot Packs Next Visit Focus/Plan Next Note Type Treatment Note Next Visit Plan Progress AROM for R shldr, AAROM and gripping
--- NOTE | 2021-07-29 15:30 | PT.OTN ---
Current Diagnoses Primary osteoarthritis, right shoulder (07/29/21) Other specific joint derangements of unspecified shoulder, not elsewhere classified (07/29/21) Incomplete rotator cuff tear or rupture of right shoulder, not specified as traumatic (07/29/21) Physical Therapy Treatment Note PT-OP-A Visit Information Start: 07/01/21 10:42 Freq: Status: Active Protocol: Document 07/29/21 14:30 AMB (Rec: 07/29/21 15:25 AMB [email or web address]) Out-Patient Physical Therapy Visit Information Visit Information Visit Type Treatment Note Visit Start Time 14:30 Visit Stop Time 15:15 Total Visit Minutes 45 Visit Number 7 PT-OP-B Current Condition Start: 07/01/21 10:42 Freq: Status: Active Protocol: Document 07/05/21 12:58 AMB (Rec: 07/05/21 13:33 AMB [id number]) Current Condition History of Current Condition Onset Date ~2018, pt unsure Current Complaints R shoulder History of Current Condition Pain started a couple of years ago after hip replacements and using the walker more. Feels like it got a bit better with taking tylenol. Reports intermittent tingling from the shoulder down in the hand, puts the hand to sleep limited with gripping because of that. Pt does have a caregiver who drives for her, helps her with dressing/ bathing. RHD. Pt has a difficult time providing a history and attends the appointment without her caregiver or any family. Prior Treatments and Tests MRI 06/17 showed partial thickness supraspinatus tear, severe osteoarthritis, mild bursitis, fraying of the labrum, infraspinatus and sbuscapularis tendonopathy. Treatment Goals Patient/Caregiver Goals Pt would like to potato picker something heavier than a glass of water, be able to put on clothes easier. Personal Factors Other Personal Factors That May Effect R and L THAs, asthma, Therapy/Recovery PT-OP-C Subjective Start: 07/01/21 10:42 Freq: Status: Active Protocol: Document 07/29/21 14:30 AMB (Rec: 07/29/21 15:25 AMB [email or web address]) OP-PT Subjective Patient Comments Patient Comments Pt states she was mildly sore after exercises. PT-OP-G Mobility & Gait Start: 07/01/21 10:42 Freq: Status: Active Protocol: Document 07/05/21 13:00 AMB (Rec: 07/06/21 10:36 AMB [email or web address]) OP Gait Assessment Comments Gait Comments Magdalena ambulates with bilateral walking sticks, she states this does not increase her shoulder pain. PT-OP-J Posture/Palpation/Skin Start: 07/01/21 10:42 Freq: Status: Active Protocol: Document 07/05/21 13:00 AMB (Rec: 07/06/21 10:14 AMB [email or web address]) Palpation Assessment Location One Palpation Location R shoulder Palpation Findings Muscle Guarding,Tenderness Palpation Details Tenderness throughout shoulder mostly at anterior shoulder PT-OP-K Range of Motion Start: 07/01/21 10:42 Freq: Status: Active Protocol: Document 07/05/21 13:00 AMB (Rec: 07/06/21 10:14 AMB [email or web address]) Shoulder Goniometric Range of Motion Shoulder Right Active Testing Position Sitting Flexion 70 Extension 40 Abduction 40 Left Active Shoulder ROM WFL Yes Testing Position Sitting Right Passive Testing Position HOB elevated Flexion 90 Abduction 45 External Rotation at 45 degrees 5 Abduction Internal Rotation 70 PT-OP-M Strength Start: 07/01/21 10:42 Freq: Status: Active Protocol: Document 07/05/21 13:00 AMB (Rec: 07/06/21 10:15 AMB [email or web address]) Hand Computer Operations Specialist/Pinch Strength Hand Dominance Hand Dominance Right Hand Strength Right Computer Operations Specialist (lbs) 0 PT-OP-Q Treatments Start: 07/01/21 10:42 Freq: Status: Active Protocol: Document 07/29/21 14:30 AMB (Rec: 07/29/21 15:14 AMB [id number]) Therapeutic Exercises Sitting Exercises shoulder blade squeeze Side bilateral Reps/Minutes 10 Comments cues to avoid elevation protraction wand Side bilateral Resistance AAROM Equipment Used trek poles Reps/Minutes 5 reps x2 sets Comments painfree range, limited range, assist to maintain shldr elevation table slides Sitting Exercise Name flex, scaption Side right Equipment Used pillow case Reps/Minutes 2x5 Comments cued slow, tolerable ROM ER wand Side right Resistance AAROM Equipment Used trek pole Reps/Minutes 2x5 reps Comments cued tall posture Standing Exercises rows Side bilateral Resistance TB2 Reps/Minutes 2x10 wall walking Standing Exercise Name scaption Reps/Minutes 5 t band extension Standing Exercise Name shoulder extension Equipment Used TB2 Reps/Minutes 2x10 shoulder circles Reps/Minutes 10 PT-OP-T Assessment and Plan Start: 07/01/21 10:42 Freq: Status: Active Protocol: Document 07/29/21 14:30 AMB (Rec: 07/29/21 15:14 AMB [id number]) Physical Therapy Assessment Goals Two Impairment shoulder ROM limited Short Term Goal (STG) Snehal will improve her shoulder PROM flexion to 130 degrees. STG Duration 4 weeks Mcfp Goal (LTG) Snehal will improve her shoulder AROM flexion to 130 degrees so that she can reach for objects above her head without pain. LTG Duration 8 weeks One Impairment Computer Operations Specialist weakness Short Term Goal (STG) Snehal will improve her R patient care technician instructor strength to 30#. STG Duration 4 weeks Sebd Teacher Goal (LTG) Snehal will improve her patient care technician instructor strength so that she can hold her phone without dropping it. LTG Duration 8 weeks Assessment Summary Assessment Snehal is having a difficult time gripping light items, more so than heavier items today during PT. Snehal is doing well with her shoulder exercises in standing. Physical Therapy Plan Next Visit Focus/Plan Next Note Type Treatment Note Next Visit Plan Progress AROM for R shldr in standing as tolerated (pt's back limits standing time), AAROM and gripping
--- NOTE | 2021-08-02 12:00 | PT.OTN ---
Current Diagnoses Primary osteoarthritis, right shoulder (08/02/21) Other specific joint derangements of unspecified shoulder, not elsewhere classified (08/02/21) Incomplete rotator cuff tear or rupture of right shoulder, not specified as traumatic (08/02/21) Physical Therapy Treatment Note PT-OP-A Visit Information Start: 07/01/21 10:42 Freq: Status: Active Protocol: Document 08/02/21 11:54 OF (Rec: 08/02/21 12:00 OF [email or web address]) Out-Patient Physical Therapy Visit Information Visit Information Visit Type Treatment Note Visit Start Time 11:15 Visit Stop Time 11:54 Total Visit Minutes 39 Visit Number 8 PT-OP-B Current Condition Start: 07/01/21 10:42 Freq: Status: Active Protocol: Document 07/05/21 12:58 AMB (Rec: 07/05/21 13:33 AMB [id number]) Current Condition History of Current Condition Onset Date ~2018, pt unsure Current Complaints R shoulder History of Current Condition Pain started a couple of years ago after hip replacements and using the walker more. Feels like it got a bit better with taking tylenol. Reports intermittent tingling from the shoulder down in the hand, puts the hand to sleep limited with gripping because of that. Pt does have a caregiver who drives for her, helps her with dressing/ bathing. RHD. Pt has a difficult time providing a history and attends the appointment without her caregiver or any family. Prior Treatments and Tests MRI 06/17 showed partial thickness supraspinatus tear, severe osteoarthritis, mild bursitis, fraying of the labrum, infraspinatus and sbuscapularis tendonopathy. 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 Personal Factors Other Personal Factors That May Effect R and L THAs, asthma, Therapy/Recovery PT-OP-C Subjective Start: 07/01/21 10:42 Freq: Status: Active Protocol: Document 08/02/21 11:54 OF (Rec: 08/02/21 12:00 OF [email or web address]) OP-PT Subjective Patient Comments Patient Comments Pt states she was mildly sore after exercises, overall my gripping has been worse, my arm is ok (indicates R shldr) Patient Reported Progress Improving OP-PT Pain Assessment Pain Assessment Grid Paper Pain Assessment Grid Completed No: pt denies pain at rest PT-OP-G Mobility & Gait Start: 07/01/21 10:42 Freq: Status: Active Protocol: Document 07/05/21 13:00 AMB (Rec: 07/06/21 10:36 AMB [email or web address]) OP Gait Assessment Comments Gait Comments Magdalena ambulates with bilateral walking sticks, she states this does not increase her shoulder pain. PT-OP-J Posture/Palpation/Skin Start: 07/01/21 10:42 Freq: Status: Active Protocol: Document 07/05/21 13:00 AMB (Rec: 07/06/21 10:14 AMB [email or web address]) Palpation Assessment Location One Palpation Location R shoulder Palpation Findings Muscle Guarding,Tenderness Palpation Details Tenderness throughout shoulder mostly at anterior shoulder PT-OP-K Range of Motion Start: 07/01/21 10:42 Freq: Status: Active Protocol: Document 07/05/21 13:00 AMB (Rec: 07/06/21 10:14 AMB [email or web address]) Shoulder Goniometric Range of Motion Shoulder Right Active Testing Position Sitting Flexion 70 Extension 40 Abduction 40 Left Active Shoulder ROM WFL Yes Testing Position Sitting Right Passive Testing Position HOB elevated Flexion 90 Abduction 45 External Rotation at 45 degrees 5 Abduction Internal Rotation 70 PT-OP-M Strength Start: 07/01/21 10:42 Freq: Status: Active Protocol: Document 07/05/21 13:00 AMB (Rec: 07/06/21 10:15 AMB [email or web address]) Hand Scaling Machine Operator/Pinch Strength Hand Dominance Hand Dominance Right Hand Strength Right Scaling Machine Operator (lbs) 0 PT-OP-Q Treatments Start: 07/01/21 10:42 Freq: Status: Active Protocol: Document 08/02/21 11:54 OF (Rec: 08/02/21 12:00 OF [email or web address]) Therapeutic Exercises Sitting Exercises pronation/sup Side right Reps/Minutes 3x10 Comments cues for eccentric, low weight from hammer held near head shoulder blade squeeze Side bilateral Reps/Minutes 10 Comments cues to avoid trap contraction /elevation cervical ROM Sitting Exercise Name flexion/extension, rotation Reps/Minutes 2 ea elbow flexion Reps/Minutes 2x10 gripping Side right Equipment Used AROM/towel cues for full closure Reps/Minutes 5min Comments cues for palmar brake tester, closing hand pulleys Side bilateral Reps/Minutes 8min Comments cues for L UE assist to move R UE shldr flexion Side right Resistance AAROM with assist from therapist for 90-100degrees Equipment Used trek pole Reps/Minutes 5min protraction wand Side bilateral Resistance AAROM Equipment Used trek poles Reps/Minutes 5 reps x2 sets Comments painfree range, limited range, improved ROM with t spine ext table slides Sitting Exercise Name flex, scaption Side right Equipment Used pillow case Reps/Minutes 2x5 Comments cued slow, tolerable ROM, pt generates >100degrees ER wand Side right Resistance AAROM Equipment Used trek pole Reps/Minutes 2x5 reps Comments cued tall posture Standing Exercises wall walking Standing Exercise Name scaption Reps/Minutes 5 shoulder circles Reps/Minutes 2x10 PT-OP-T Assessment and Plan Start: 07/01/21 10:42 Freq: Status: Active Protocol: Document 08/02/21 11:54 OF (Rec: 08/02/21 12:00 OF [email or web address]) Physical Therapy Assessment Rehab Potential Rehabilitation Potential Good Evaluation Complexity Number of Personal Factors/Comorbidities 1-2 Number of Body Systems Impaired 1-2 Clinical Presentation at Evaluation Stable Impairments Impairments Pain,ROM,Soft Tissue Mobility, Strength Goals Two Impairment shoulder ROM limited Short Term Goal (STG) Snehal will improve her shoulder PROM flexion to 130 degrees. STG Duration 4 weeks Group Home Goal (LTG) Snehal will improve her shoulder AROM flexion to 130 degrees so that she can reach for objects above her head without pain. LTG Duration 8 weeks One Impairment Scaling Machine Operator weakness Short Term Goal (STG) Snehal will improve her R brake tester strength to 30#. STG Duration 4 weeks Group Home Goal (LTG) Snehal will improve her brake tester strength so that she can hold her phone without dropping it. LTG Duration 8 weeks Progress Towards Goals Progress Towards Goals Progressing Toward Goals Assessment Summary Assessment Snehal is improving her shldr AAROM with distractions, or bilat UE. She has difficulty with gripping today. Agreeable for HEP with washcloth, table slides Physical Therapy Plan Frequency and Duration Frequency of Treatment 2x/Week Duration of Treatment 8 weeks Plan of Care Start Date 07/05/21 Plan of Care End Date 08/30/21 Therapeutic Interventions Therapeutic Interventions Home Exercise Program,Manual Therapy,Neuromuscular Re- education,Self-Care/Home Management,Therapeutic Activities,Therapeutic Exercises Modalities Cold Pack/Ice Massage,Electric Stimulation,Hot Packs Next Visit Focus/Plan Next Note Type Treatment Note Next Visit Plan Progress AROM for R shldr in standing as tolerated (pt's back limits standing time), AAROM and gripping
--- NOTE | 2021-08-05 15:26 | PT.OTN ---
Current Diagnoses Primary osteoarthritis, right shoulder (08/05/21) Other specific joint derangements of unspecified shoulder, not elsewhere classified (08/05/21) Incomplete rotator cuff tear or rupture of right shoulder, not specified as traumatic (08/05/21) Physical Therapy Treatment Note PT-OP-A Visit Information Start: 07/01/21 10:42 Freq: Status: Active Protocol: Document 08/05/21 13:46 AMB (Rec: 08/05/21 13:56 AMB [id number]) Out-Patient Physical Therapy Visit Information Visit Information Visit Type Treatment Note Visit Start Time 13:45 Visit Stop Time 14:30 Total Visit Minutes 45 Visit Number 9 PT-OP-B Current Condition Start: 07/01/21 10:42 Freq: Status: Active Protocol: Document 07/05/21 12:58 AMB (Rec: 07/05/21 13:33 AMB [id number]) Current Condition History of Current Condition Onset Date ~2018, pt unsure Current Complaints R shoulder History of Current Condition Pain started a couple of years ago after hip replacements and using the walker more. Feels like it got a bit better with taking tylenol. Reports intermittent tingling from the shoulder down in the hand, puts the hand to sleep limited with gripping because of that. Pt does have a caregiver who drives for her, helps her with dressing/ bathing. RHD. Pt has a difficult time providing a history and attends the appointment without her caregiver or any family. Prior Treatments and Tests MRI 06/17 showed partial thickness supraspinatus tear, severe osteoarthritis, mild bursitis, fraying of the labrum, infraspinatus and sbuscapularis tendonopathy. Treatment Goals Patient/Caregiver Goals Pt would like to picker packer something heavier than a glass of water, be able to put on clothes easier. Personal Factors Other Personal Factors That May Effect R and L THAs, asthma, Therapy/Recovery PT-OP-C Subjective Start: 07/01/21 10:42 Freq: Status: Active Protocol: Document 08/05/21 13:46 AMB (Rec: 08/05/21 13:56 AMB [id number]) OP-PT Subjective Patient Comments Patient Comments Pt states she thinks shoulder is slowly improving. PT-OP-G Mobility & Gait Start: 07/01/21 10:42 Freq: Status: Active Protocol: Document 07/05/21 13:00 AMB (Rec: 07/06/21 10:36 AMB [email or web address]) OP Gait Assessment Comments Gait Comments Magdalena ambulates with bilateral walking sticks, she states this does not increase her shoulder pain. PT-OP-J Posture/Palpation/Skin Start: 07/01/21 10:42 Freq: Status: Active Protocol: Document 07/05/21 13:00 AMB (Rec: 07/06/21 10:14 AMB [email or web address]) Palpation Assessment Location One Palpation Location R shoulder Palpation Findings Muscle Guarding,Tenderness Palpation Details Tenderness throughout shoulder mostly at anterior shoulder PT-OP-K Range of Motion Start: 07/01/21 10:42 Freq: Status: Active Protocol: Document 08/05/21 13:45 AMB (Rec: 08/05/21 14:03 AMB [id number]) Shoulder Goniometric Range of Motion Shoulder Right Active Flexion 75 Abduction 55 Right Passive Flexion 120 Abduction 55 PT-OP-M Strength Start: 07/01/21 10:42 Freq: Status: Active Protocol: Document 07/05/21 13:00 AMB (Rec: 07/06/21 10:15 AMB [email or web address]) Hand Steel Layout Worker/Pinch Strength Hand Dominance Hand Dominance Right Hand Strength Right Steel Layout Worker (lbs) 0 PT-OP-Q Treatments Start: 07/01/21 10:42 Freq: Status: Active Protocol: Document 08/05/21 13:45 AMB (Rec: 08/05/21 14:33 AMB [id number]) Therapeutic Exercises Sitting Exercises theraputty Sitting Exercise Name yellow Reps/Minutes gripping, pinching 5 min pronation/sup Side right Reps/Minutes 3x10 Comments cues for eccentric, low weight from hammer held near head elbow flexion Reps/Minutes 2x10 Comments weight of hammer pulleys Side bilateral Reps/Minutes 8min Comments cues for L UE assist to move R UE Standing Exercises rows Side bilateral Resistance TB2 Reps/Minutes 2x10 shoulder circles Reps/Minutes 2x10 PT-OP-T Assessment and Plan Start: 07/01/21 10:42 Freq: Status: Active Protocol: Document 08/05/21 13:45 AMB (Rec: 08/05/21 14:33 AMB [id number]) Physical Therapy Assessment Assessment Summary Assessment Pt showed good improvement in PROM and AROM of shoulder, continues to show less than 5# lawn mower repairer strength on the L and 30 # on the right. Physical Therapy Plan Next Visit Focus/Plan Next Note Type Treatment Note Next Visit Plan Progress AROM for R shldr in standing as tolerated (pt's back limits standing time), AAROM and gripping
--- NOTE | 2021-08-09 14:51 | PT.OTN ---
Current Diagnoses Primary osteoarthritis, right shoulder (08/09/21) Other specific joint derangements of unspecified shoulder, not elsewhere classified (08/09/21) Incomplete rotator cuff tear or rupture of right shoulder, not specified as traumatic (08/09/21) Physical Therapy Treatment Note PT-OP-A Visit Information Start: 07/01/21 10:42 Freq: Status: Active Protocol: Document 08/09/21 13:00 AMB (Rec: 08/09/21 13:15 AMB [id number]) Out-Patient Physical Therapy Visit Information Visit Information Visit Type Progress Note Visit Start Time 13:00 Visit Stop Time 13:45 Total Visit Minutes 45 Visit Number 10 PT-OP-B Current Condition Start: 07/01/21 10:42 Freq: Status: Active Protocol: Document 07/05/21 12:58 AMB (Rec: 07/05/21 13:33 AMB [id number]) Current Condition History of Current Condition Onset Date ~2018, pt unsure Current Complaints R shoulder History of Current Condition Pain started a couple of years ago after hip replacements and using the walker more. Feels like it got a bit better with taking tylenol. Reports intermittent tingling from the shoulder down in the hand, puts the hand to sleep limited with gripping because of that. Pt does have a caregiver who drives for her, helps her with dressing/ bathing. RHD. Pt has a difficult time providing a history and attends the appointment without her caregiver or any family. Prior Treatments and Tests MRI 06/17 showed partial thickness supraspinatus tear, severe osteoarthritis, mild bursitis, fraying of the labrum, infraspinatus and sbuscapularis tendonopathy. 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 Personal Factors Other Personal Factors That May Effect R and L THAs, asthma, Therapy/Recovery PT-OP-C Subjective Start: 07/01/21 10:42 Freq: Status: Active Protocol: Document 08/09/21 13:00 AMB (Rec: 08/09/21 13:15 AMB [id number]) OP-PT Subjective Patient Comments Patient Comments Pt states she was not sore after last visit. Was able to do bead work with the hand without issue. PT-OP-G Mobility & Gait Start: 07/01/21 10:42 Freq: Status: Active Protocol: Document 07/05/21 13:00 AMB (Rec: 07/06/21 10:36 AMB [email or web address]) OP Gait Assessment Comments Gait Comments Magdalena ambulates with bilateral walking sticks, she states this does not increase her shoulder pain. PT-OP-J Posture/Palpation/Skin Start: 07/01/21 10:42 Freq: Status: Active Protocol: Document 07/05/21 13:00 AMB (Rec: 07/06/21 10:14 AMB [email or web address]) Palpation Assessment Location One Palpation Location R shoulder Palpation Findings Muscle Guarding,Tenderness Palpation Details Tenderness throughout shoulder mostly at anterior shoulder PT-OP-K Range of Motion Start: 07/01/21 10:42 Freq: Status: Active Protocol: Document 08/05/21 13:45 AMB (Rec: 08/05/21 14:03 AMB [id number]) Shoulder Goniometric Range of Motion Shoulder Right Active Flexion 75 Abduction 55 Right Passive Flexion 120 Abduction 55 PT-OP-M Strength Start: 07/01/21 10:42 Freq: Status: Active Protocol: Document 07/05/21 13:00 AMB (Rec: 07/06/21 10:15 AMB [email or web address]) Hand Story Teller/Pinch Strength Hand Dominance Hand Dominance Right Hand Strength Right Story Teller (lbs) 0 PT-OP-Q Treatments Start: 07/01/21 10:42 Freq: Status: Active Protocol: Document 08/09/21 13:00 AMB (Rec: 08/09/21 13:15 AMB [id number]) Therapeutic Exercises Sitting Exercises isometrics Reps/Minutes 10 Comments ER/IR pulleys Sitting Exercise Name flexion only Side bilateral Reps/Minutes 8min Comments cues for L UE assist to move R UE shldr flexion Side right Resistance AAROM with assist from therapist for 90-100degrees Equipment Used table Reps/Minutes 5min Standing Exercises rows Side bilateral Resistance TB2 Reps/Minutes 2x10 wall walking Standing Exercise Name scaption Reps/Minutes 5 t band extension Standing Exercise Name shoulder extension Equipment Used TB2 Reps/Minutes 2x10 PT-OP-T Assessment and Plan Start: 07/01/21 10:42 Freq: Status: Active Protocol: Document 08/09/21 13:00 AMB (Rec: 08/09/21 13:15 AMB [id number]) Physical Therapy Assessment Goals Two Impairment shoulder ROM limited Short Term Goal (STG) Snehal will improve her shoulder PROM flexion to 130 degrees. 120 degrees- progress made STG Duration 4 weeks Time Broker Goal (LTG) Snehal will improve her shoulder AROM flexion to 130 degrees so that she can reach for objects above her head without pain. LTG Duration 8 weeks One Impairment Story Teller weakness Short Term Goal (STG) Snehal will improve her R county demonstrator strength to 30#. 5# county demonstrator strength but pt has good [place] county demonstrator STG Duration 4 weeks- progress made Prison Goal (LTG) Snehal will improve her county demonstrator strength so that she can hold her phone without dropping it. LTG Duration 8 weeks Assessment Summary Assessment Pt can do fine motor activities but gripping is still challenging, PROM is improving, but AROM continues to be quite limited. Physical Therapy Plan Next Visit Focus/Plan Next Note Type Treatment Note Next Visit Plan Progress AROM for R shldr in standing as tolerated (pt's back limits standing time), AAROM and gripping
--- NOTE | 2021-08-12 10:42 | PT.OTN ---
Current Diagnoses Primary osteoarthritis, right shoulder (08/12/21) Other specific joint derangements of unspecified shoulder, not elsewhere classified (08/12/21) Incomplete rotator cuff tear or rupture of right shoulder, not specified as traumatic (08/12/21) Physical Therapy Treatment Note PT-OP-A Visit Information Start: 07/01/21 10:42 Freq: Status: Active Protocol: Document 08/12/21 09:56 AMB (Rec: 08/12/21 10:27 AMB [id number]) Out-Patient Physical Therapy Visit Information Visit Information Visit Type Treatment Note Visit Start Time 09:45 Visit Stop Time 10:30 Total Visit Minutes 45 Visit Number 11 PT-OP-B Current Condition Start: 07/01/21 10:42 Freq: Status: Active Protocol: Document 07/05/21 12:58 AMB (Rec: 07/05/21 13:33 AMB [id number]) Current Condition History of Current Condition Onset Date ~2018, pt unsure Current Complaints R shoulder History of Current Condition Pain started a couple of years ago after hip replacements and using the walker more. Feels like it got a bit better with taking tylenol. Reports intermittent tingling from the shoulder down in the hand, puts the hand to sleep limited with gripping because of that. Pt does have a caregiver who drives for her, helps her with dressing/ bathing. RHD. Pt has a difficult time providing a history and attends the appointment without her caregiver or any family. Prior Treatments and Tests MRI 06/17 showed partial thickness supraspinatus tear, severe osteoarthritis, mild bursitis, fraying of the labrum, infraspinatus and sbuscapularis tendonopathy. Treatment Goals Patient/Caregiver Goals Pt would like to molded goods spot picker something heavier than a glass of water, be able to put on clothes easier. Personal Factors Other Personal Factors That May Effect R and L THAs, asthma, Therapy/Recovery PT-OP-C Subjective Start: 07/01/21 10:42 Freq: Status: Active Protocol: Document 08/12/21 09:56 AMB (Rec: 08/12/21 10:27 AMB [id number]) OP-PT Subjective Patient Comments Patient Comments Pt states she is doing well with her exercises she is doing her gripping and her shoulder exercises. PT-OP-G Mobility & Gait Start: 07/01/21 10:42 Freq: Status: Active Protocol: Document 07/05/21 13:00 AMB (Rec: 07/06/21 10:36 AMB [email or web address]) OP Gait Assessment Comments Gait Comments Magdalena ambulates with bilateral walking sticks, she states this does not increase her shoulder pain. PT-OP-J Posture/Palpation/Skin Start: 07/01/21 10:42 Freq: Status: Active Protocol: Document 07/05/21 13:00 AMB (Rec: 07/06/21 10:14 AMB [email or web address]) Palpation Assessment Location One Palpation Location R shoulder Palpation Findings Muscle Guarding,Tenderness Palpation Details Tenderness throughout shoulder mostly at anterior shoulder PT-OP-K Range of Motion Start: 07/01/21 10:42 Freq: Status: Active Protocol: Document 08/05/21 13:45 AMB (Rec: 08/05/21 14:03 AMB [id number]) Shoulder Goniometric Range of Motion Shoulder Right Active Flexion 75 Abduction 55 Right Passive Flexion 120 Abduction 55 PT-OP-M Strength Start: 07/01/21 10:42 Freq: Status: Active Protocol: Document 07/05/21 13:00 AMB (Rec: 07/06/21 10:15 AMB [email or web address]) Hand Complaint Clerk/Pinch Strength Hand Dominance Hand Dominance Right Hand Strength Right Complaint Clerk (lbs) 0 PT-OP-Q Treatments Start: 07/01/21 10:42 Freq: Status: Active Protocol: Document 08/12/21 09:56 AMB (Rec: 08/12/21 10:27 AMB [id number]) Therapeutic Exercises Sitting Exercises elbow flexion Reps/Minutes 2x10 Comments 3# gripping Side right Equipment Used AROM/towel cues for full closure Reps/Minutes 5min Comments cues for palmar linting machine operator, closing hand pulleys Sitting Exercise Name flexion only Side bilateral Reps/Minutes 8min Comments (performed in standing) cues for L UE assist to move R UE shldr flexion Side right Resistance AAROM with assist from therapist for 90-100degrees Equipment Used table Reps/Minutes 5min Standing Exercises rows Side bilateral Resistance TB2 Reps/Minutes 2x10 t band extension Standing Exercise Name shoulder extension Equipment Used TB2 Reps/Minutes 2x10 PT-OP-T Assessment and Plan Start: 07/01/21 10:42 Freq: Status: Active Protocol: Document 08/12/21 09:56 AMB (Rec: 08/12/21 10:27 AMB [id number]) Physical Therapy Assessment Goals Two Impairment shoulder ROM limited Short Term Goal (STG) Snehal will improve her shoulder PROM flexion to 130 degrees. 120 degrees- progress made STG Duration 4 weeks Half-Way Goal (LTG) Snehal will improve her shoulder AROM flexion to 130 degrees so that she can reach for objects above her head without pain. LTG Duration 8 weeks One Impairment Complaint Clerk weakness Short Term Goal (STG) Snehal will improve her R linting machine operator strength to 30#. 5# linting machine operator strength but pt has good pincher linting machine operator STG Duration 4 weeks- progress made Steel Detailer Goal (LTG) Snehal will improve her linting machine operator strength so that she can hold her phone without dropping it. LTG Duration 8 weeks Assessment Summary Assessment Increased weights today with elbow flexion and pt was able to tolerate. Although she continues to state that she can't linting machine operator tightly, but if she keeps a light linting machine operator she can hold heavier weights. Shoulder ROM is improving in flexion but still quite limited in ER and abduction. Physical Therapy Plan Next Visit Focus/Plan Next Note Type Treatment Note Next Visit Plan Progress AROM for R shldr in standing as tolerated (pt's back limits standing time), AAROM and gripping, can add in elbow strengthening as tolerated to encourage use of the whole arm.
--- NOTE | 2021-08-15 14:32 | PT.OTN ---
Current Diagnoses Primary osteoarthritis, right shoulder (08/15/21) Other specific joint derangements of unspecified shoulder, not elsewhere classified (08/15/21) Incomplete rotator cuff tear or rupture of right shoulder, not specified as traumatic (08/15/21) Physical Therapy Treatment Note PT-OP-A Visit Information Start: 07/01/21 10:42 Freq: Status: Active Protocol: Document 08/15/21 13:45 MA (Rec: 08/15/21 14:32 MA [id number]) Out-Patient Physical Therapy Visit Information Visit Information Visit Type Treatment Note Visit Start Time 13:45 Visit Stop Time 14:28 Total Visit Minutes 43 Visit Number 12 Number of DEPARTURE CLERK Visits 1 PT-OP-B Current Condition Start: 07/01/21 10:42 Freq: Status: Active Protocol: Document 07/05/21 12:58 AMB (Rec: 07/05/21 13:33 AMB [id number]) Current Condition History of Current Condition Onset Date ~2018, pt unsure Current Complaints R shoulder History of Current Condition Pain started a couple of years ago after hip replacements and using the walker more. Feels like it got a bit better with taking tylenol. Reports intermittent tingling from the shoulder down in the hand, puts the hand to sleep limited with gripping because of that. Pt does have a caregiver who drives for her, helps her with dressing/ bathing. RHD. Pt has a difficult time providing a history and attends the appointment without her caregiver or any family. Prior Treatments and Tests MRI 06/17 showed partial thickness supraspinatus tear, severe osteoarthritis, mild bursitis, fraying of the labrum, infraspinatus and sbuscapularis tendonopathy. 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 Personal Factors Other Personal Factors That May Effect R and L THAs, asthma, Therapy/Recovery PT-OP-C Subjective Start: 07/01/21 10:42 Freq: Status: Active Protocol: Document 08/15/21 13:45 MA (Rec: 08/15/21 14:32 MA [id number]) OP-PT Subjective Patient Comments Patient Comments Pt states her shoulder is feeling better overall but her operations intern strength is still poor if she has to lift something heavy PT-OP-G Mobility & Gait Start: 07/01/21 10:42 Freq: Status: Active Protocol: Document 07/05/21 13:00 AMB (Rec: 07/06/21 10:36 AMB [email or web address]) OP Gait Assessment Comments Gait Comments Magdalena ambulates with bilateral walking sticks, she states this does not increase her shoulder pain. PT-OP-J Posture/Palpation/Skin Start: 07/01/21 10:42 Freq: Status: Active Protocol: Document 07/05/21 13:00 AMB (Rec: 07/06/21 10:14 AMB [email or web address]) Palpation Assessment Location One Palpation Location R shoulder Palpation Findings Muscle Guarding,Tenderness Palpation Details Tenderness throughout shoulder mostly at anterior shoulder PT-OP-K Range of Motion Start: 07/01/21 10:42 Freq: Status: Active Protocol: Document 08/05/21 13:45 AMB (Rec: 08/05/21 14:03 AMB [id number]) Shoulder Goniometric Range of Motion Shoulder Right Active Flexion 75 Abduction 55 Right Passive Flexion 120 Abduction 55 PT-OP-M Strength Start: 07/01/21 10:42 Freq: Status: Active Protocol: Document 07/05/21 13:00 AMB (Rec: 07/06/21 10:15 AMB [email or web address]) Hand Blunger/Pinch Strength Hand Dominance Hand Dominance Right Hand Strength Right Blunger (lbs) 0 PT-OP-Q Treatments Start: 07/01/21 10:42 Freq: Status: Active Protocol: Document 08/15/21 13:45 MA (Rec: 08/15/21 14:32 MA [id number]) Cardio Equipment Upper Body Ergometer (UBE) Duration (Minutes) 6 Seat Position standing Height 3 Therapeutic Exercises Sitting Exercises elbow flexion Reps/Minutes 2x10 Comments 3# pulleys Sitting Exercise Name flexion only- pt requests performing in seated Side bilateral Reps/Minutes 8min Comments cues for L UE assist to move R UE ER wand Sitting Exercise Name ER & ABD to 90 degrees with wand Side right Resistance AAROM Equipment Used trek pole Reps/Minutes 2x5 reps Comments cued tall posture Standing Exercises rows Side bilateral Resistance TB2 Reps/Minutes 2x10 t band extension Standing Exercise Name shoulder extension Equipment Used TB2 Reps/Minutes 2x10 PT-OP-T Assessment and Plan Start: 07/01/21 10:42 Freq: Status: Active Protocol: Document 08/15/21 13:45 MA (Rec: 08/15/21 14:32 MA [id number]) Physical Therapy Assessment Goals Two Impairment shoulder ROM limited Short Term Goal (STG) Snehal will improve her shoulder PROM flexion to 130 degrees. 120 degrees- progress made STG Duration 4 weeks Store Merchandiser Goal (LTG) Snehal will improve her shoulder AROM flexion to 130 degrees so that she can reach for objects above her head without pain. LTG Duration 8 weeks One Impairment Blunger weakness Short Term Goal (STG) Snehal will improve her R operations intern strength to 30#. 5# operations intern strength but pt has good pincher operations intern STG Duration 4 weeks- progress made Store Merchandiser Goal (LTG) Snehal will improve her operations intern strength so that she can hold her phone without dropping it. LTG Duration 8 weeks Assessment Summary Assessment Pt required minor assistance during elbow flexion exercises to keep 2# weight in R hand during eccentric movement due to decreased R operations intern strength. She is able to complete 6 minutes standing while using shoulder bike this session demonstrating improved AROM. Pt struggles to complete R shd ABD to 90 degrees with wand this session but improves ROM with each rep. Physical Therapy Plan Frequency and Duration Frequency of Treatment 2x/Week Duration of Treatment 8 weeks Plan of Care Start Date 07/05/21 Plan of Care End Date 08/30/21 Therapeutic Interventions Therapeutic Interventions Home Exercise Program,Manual Therapy,Neuromuscular Re- education,Self-Care/Home Management,Therapeutic Activities,Therapeutic Exercises Modalities Cold Pack/Ice Massage,Electric Stimulation,Hot Packs Next Visit Focus/Plan Next Note Type Treatment Note Next Visit Plan Progress AROM for R shldr in standing as tolerated (pt's back limits standing time), AAROM and gripping, can add in elbow strengthening as tolerated to encourage use of the whole arm.
--- NOTE | 2021-08-17 16:03 | PT.OTN ---
Current Diagnoses Primary osteoarthritis, right shoulder (08/17/21) Other specific joint derangements of unspecified shoulder, not elsewhere classified (08/17/21) Incomplete rotator cuff tear or rupture of right shoulder, not specified as traumatic (08/17/21) Physical Therapy Treatment Note PT-OP-A Visit Information Start: 07/01/21 10:42 Freq: Status: Active Protocol: Document 08/17/21 15:13 MA (Rec: 08/17/21 16:01 MA [id number]) Out-Patient Physical Therapy Visit Information Visit Information Visit Type Treatment Note Visit Start Time 15:15 Visit Stop Time 15:55 Total Visit Minutes 40 Visit Number 13 Number of COGNOS ARCHITECT Visits 2 PT-OP-B Current Condition Start: 07/01/21 10:42 Freq: Status: Active Protocol: Document 07/05/21 12:58 AMB (Rec: 07/05/21 13:33 AMB [id number]) Current Condition History of Current Condition Onset Date ~2018, pt unsure Current Complaints R shoulder History of Current Condition Pain started a couple of years ago after hip replacements and using the walker more. Feels like it got a bit better with taking tylenol. Reports intermittent tingling from the shoulder down in the hand, puts the hand to sleep limited with gripping because of that. Pt does have a caregiver who drives for her, helps her with dressing/ bathing. RHD. Pt has a difficult time providing a history and attends the appointment without her caregiver or any family. Prior Treatments and Tests MRI 06/17 showed partial thickness supraspinatus tear, severe osteoarthritis, mild bursitis, fraying of the labrum, infraspinatus and sbuscapularis tendonopathy. Treatment Goals Patient/Caregiver Goals Pt would like to pickle sorter something heavier than a glass of water, be able to put on clothes easier. Personal Factors Other Personal Factors That May Effect R and L THAs, asthma, Therapy/Recovery PT-OP-C Subjective Start: 07/01/21 10:42 Freq: Status: Active Protocol: Document 08/17/21 15:13 MA (Rec: 08/17/21 16:03 MA [id number]) OP-PT Subjective Patient Comments Patient Comments Pt feels the arm bike was helpful and she thinks her ROM is better PT-OP-G Mobility & Gait Start: 07/01/21 10:42 Freq: Status: Active Protocol: Document 07/05/21 13:00 AMB (Rec: 07/06/21 10:36 AMB [email or web address]) OP Gait Assessment Comments Gait Comments Magdalena ambulates with bilateral walking sticks, she states this does not increase her shoulder pain. PT-OP-J Posture/Palpation/Skin Start: 07/01/21 10:42 Freq: Status: Active Protocol: Document 07/05/21 13:00 AMB (Rec: 07/06/21 10:14 AMB [email or web address]) Palpation Assessment Location One Palpation Location R shoulder Palpation Findings Muscle Guarding,Tenderness Palpation Details Tenderness throughout shoulder mostly at anterior shoulder PT-OP-K Range of Motion Start: 07/01/21 10:42 Freq: Status: Active Protocol: Document 08/05/21 13:45 AMB (Rec: 08/05/21 14:03 AMB [id number]) Shoulder Goniometric Range of Motion Shoulder Right Active Flexion 75 Abduction 55 Right Passive Flexion 120 Abduction 55 PT-OP-M Strength Start: 07/01/21 10:42 Freq: Status: Active Protocol: Document 07/05/21 13:00 AMB (Rec: 07/06/21 10:15 AMB [email or web address]) Hand Food And Beverage Server/Pinch Strength Hand Dominance Hand Dominance Right Hand Strength Right Food And Beverage Server (lbs) 0 PT-OP-Q Treatments Start: 07/01/21 10:42 Freq: Status: Active Protocol: Document 08/17/21 15:13 MA (Rec: 08/17/21 16:01 MA [id number]) Cardio Equipment Upper Body Ergometer (UBE) Duration (Minutes) 6 Seat Position standing Height 3 Other 1' fwd/1' back Therapeutic Exercises Sitting Exercises elbow flexion Reps/Minutes 2x10 Comments 2# ER wand Sitting Exercise Name Flexion, ER & ABD to 90 degrees with wand Side right Resistance AAROM Equipment Used wand Reps/Minutes 2x5 reps Comments cued tall posture Manual Therapy Treatment Manual Techniques PROM Body Position Sitting Reps/Duration 4' Comments In seated and supine on wedge- pt unable to tolerate supine long due to breathing issues PT-OP-T Assessment and Plan Start: 07/01/21 10:42 Freq: Status: Active Protocol: Document 08/17/21 15:13 MA (Rec: 08/17/21 16:01 MA [id number]) Physical Therapy Assessment Goals Two Impairment shoulder ROM limited Short Term Goal (STG) Snehal will improve her shoulder PROM flexion to 130 degrees. 120 degrees- progress made STG Duration 4 weeks Skilled Nursing Goal (LTG) Snehal will improve her shoulder AROM flexion to 130 degrees so that she can reach for objects above her head without pain. LTG Duration 8 weeks One Impairment Food And Beverage Server weakness Short Term Goal (STG) Snehal will improve her R forensic science technician strength to 30#. 5# forensic science technician strength but pt has good pincher forensic science technician STG Duration 4 weeks- progress made Skilled Nursing Goal (LTG) Snehal will improve her forensic science technician strength so that she can hold her phone without dropping it. LTG Duration 8 weeks Assessment Summary Assessment Pt does well with AAROM after warming up on arm bike. She is still only able to get to 90 degrees flexion and abduction AAROM with wand but does not need assistance by PT this session. Attempted PROM in supine on wedge but pt is unable to tolerate due to breathing issues and struggles to relax during PROM in seated. Passively she gets to ~100 degrees flexon before c/o R shd pain. Pt enjoys starting with arm bike in standing and requests warming up that way next session again to improve ROM. Physical Therapy Plan Frequency and Duration Frequency of Treatment 2x/Week Duration of Treatment 8 weeks Plan of Care Start Date 07/05/21 Plan of Care End Date 08/30/21 Therapeutic Interventions Therapeutic Interventions Home Exercise Program,Manual Therapy,Neuromuscular Re- education,Self-Care/Home Management,Therapeutic Activities,Therapeutic Exercises Modalities Cold Pack/Ice Massage,Electric Stimulation,Hot Packs Next Visit Focus/Plan Next Note Type Treatment Note Next Visit Plan Warm up on arm bike in standing Progress AROM for R shldr in standing as tolerated (pt's back limits standing time), AAROM and gripping, can add in elbow strengthening as tolerated to encourage use of the whole arm.
--- NOTE | 2021-08-24 10:26 | PT.OTN ---
Current Diagnoses Primary osteoarthritis, right shoulder (08/24/21) Other specific joint derangements of unspecified shoulder, not elsewhere classified (08/24/21) Incomplete rotator cuff tear or rupture of right shoulder, not specified as traumatic (08/24/21) Physical Therapy Treatment Note PT-OP-A Visit Information Start: 07/01/21 10:42 Freq: Status: Active Protocol: Document 08/24/21 09:45 AMB (Rec: 08/24/21 10:02 AMB [id number]) Out-Patient Physical Therapy Visit Information Visit Information Visit Type Treatment Note Visit Start Time 09:45 Visit Stop Time 10:30 Total Visit Minutes 45 Visit Number 14 Number of MARKET RESEARCH ANALYST Visits 0 PT-OP-B Current Condition Start: 07/01/21 10:42 Freq: Status: Active Protocol: Document 07/05/21 12:58 AMB (Rec: 07/05/21 13:33 AMB [id number]) Current Condition History of Current Condition Onset Date ~2018, pt unsure Current Complaints R shoulder History of Current Condition Pain started a couple of years ago after hip replacements and using the walker more. Feels like it got a bit better with taking tylenol. Reports intermittent tingling from the shoulder down in the hand, puts the hand to sleep limited with gripping because of that. Pt does have a caregiver who drives for her, helps her with dressing/ bathing. RHD. Pt has a difficult time providing a history and attends the appointment without her caregiver or any family. Prior Treatments and Tests MRI 06/17 showed partial thickness supraspinatus tear, severe osteoarthritis, mild bursitis, fraying of the labrum, infraspinatus and sbuscapularis tendonopathy. 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 Personal Factors Other Personal Factors That May Effect R and L THAs, asthma, Therapy/Recovery PT-OP-C Subjective Start: 07/01/21 10:42 Freq: Status: Active Protocol: Document 08/24/21 09:45 AMB (Rec: 08/24/21 10:02 AMB [id number]) OP-PT Subjective Patient Comments Patient Comments Pt reports mild discomfort in shoulder after last PT visit PT-OP-G Mobility & Gait Start: 07/01/21 10:42 Freq: Status: Active Protocol: Document 07/05/21 13:00 AMB (Rec: 07/06/21 10:36 AMB [email or web address]) OP Gait Assessment Comments Gait Comments Magdalena ambulates with bilateral walking sticks, she states this does not increase her shoulder pain. PT-OP-J Posture/Palpation/Skin Start: 07/01/21 10:42 Freq: Status: Active Protocol: Document 07/05/21 13:00 AMB (Rec: 07/06/21 10:14 AMB [email or web address]) Palpation Assessment Location One Palpation Location R shoulder Palpation Findings Muscle Guarding,Tenderness Palpation Details Tenderness throughout shoulder mostly at anterior shoulder PT-OP-K Range of Motion Start: 07/01/21 10:42 Freq: Status: Active Protocol: Document 08/05/21 13:45 AMB (Rec: 08/05/21 14:03 AMB [id number]) Shoulder Goniometric Range of Motion Shoulder Right Active Flexion 75 Abduction 55 Right Passive Flexion 120 Abduction 55 PT-OP-M Strength Start: 07/01/21 10:42 Freq: Status: Active Protocol: Document 07/05/21 13:00 AMB (Rec: 07/06/21 10:15 AMB [email or web address]) Hand Playground Director/Pinch Strength Hand Dominance Hand Dominance Right Hand Strength Right Playground Director (lbs) 0 PT-OP-Q Treatments Start: 07/01/21 10:42 Freq: Status: Active Protocol: Document 08/24/21 09:45 AMB (Rec: 08/24/21 10:02 AMB [id number]) Cardio Equipment Upper Body Ergometer (UBE) Duration (Minutes) 6 Seat Position standing Height 3 Other 1' fwd/1' back Therapeutic Exercises Sitting Exercises isometrics Reps/Minutes 10 Comments ER/IR pulleys Sitting Exercise Name flexion only- pt requests performing in seated Side bilateral Reps/Minutes 8min Comments cues for L UE assist to move R UE shldr flexion Side right Resistance AAROM with assist from therapist for 90-100degrees Equipment Used table Reps/Minutes 5min Standing Exercises rows Side bilateral Resistance TB2 Reps/Minutes 2x10 wall walking Standing Exercise Name scaption Reps/Minutes 5 t band extension Standing Exercise Name shoulder extension Equipment Used TB2 Reps/Minutes 2x10 PT-OP-T Assessment and Plan Start: 07/01/21 10:42 Freq: Status: Active Protocol: Document 08/24/21 09:45 AMB (Rec: 08/24/21 10:02 AMB [id number]) Physical Therapy Assessment Goals Two Impairment shoulder ROM limited Short Term Goal (STG) Snehal will improve her shoulder PROM flexion to 130 degrees. 120 degrees- progress made STG Duration 4 weeks Glass Cylinder Flanger Goal (LTG) Snehal will improve her shoulder AROM flexion to 130 degrees so that she can reach for objects above her head without pain. LTG Duration 8 weeks One Impairment Playground Director weakness Short Term Goal (STG) Snehal will improve her R roller structural mill strength to 30#. 5# roller structural mill strength but pt has good pincher roller structural mill STG Duration 4 weeks- progress made [facility] Goal (LTG) Snehal will improve her roller structural mill strength so that she can hold her phone without dropping it. LTG Duration 8 weeks Assessment Summary Assessment Pt tolerated t band and isometrics well. Overall continues to be limited in overhead activities, but strength below shoulder height is improving. Physical Therapy Plan Next Visit Focus/Plan Next Note Type Treatment Note Next Visit Plan Warm up on arm bike in standing Progress AROM for R shldr in standing as tolerated (pt's back limits standing time), AAROM and gripping, can add in elbow strengthening as tolerated to encourage use of the whole arm.
--- NOTE | 2021-08-26 15:51 | PT.OTN ---
Current Diagnoses Primary osteoarthritis, right shoulder (08/26/21) Other specific joint derangements of unspecified shoulder, not elsewhere classified (08/26/21) Incomplete rotator cuff tear or rupture of right shoulder, not specified as traumatic (08/26/21) Physical Therapy Treatment Note PT-OP-A Visit Information Start: 07/01/21 10:42 Freq: Status: Active Protocol: Document 08/26/21 13:00 AMB (Rec: 08/26/21 13:19 AMB [id number]) Out-Patient Physical Therapy Visit Information Visit Information Visit Type Progress Note Visit Start Time 13:00 Visit Stop Time 13:44 Total Visit Minutes 44 Visit Number 15 PT-OP-B Current Condition Start: 07/01/21 10:42 Freq: Status: Active Protocol: Document 07/05/21 12:58 AMB (Rec: 07/05/21 13:33 AMB [id number]) Current Condition History of Current Condition Onset Date ~2018, pt unsure Current Complaints R shoulder History of Current Condition Pain started a couple of years ago after hip replacements and using the walker more. Feels like it got a bit better with taking tylenol. Reports intermittent tingling from the shoulder down in the hand, puts the hand to sleep limited with gripping because of that. Pt does have a caregiver who drives for her, helps her with dressing/ bathing. RHD. Pt has a difficult time providing a history and attends the appointment without her caregiver or any family. Prior Treatments and Tests MRI 06/17 showed partial thickness supraspinatus tear, severe osteoarthritis, mild bursitis, fraying of the labrum, infraspinatus and sbuscapularis tendonopathy. Treatment Goals Patient/Caregiver Goals Pt would like to fruit or nut picker something heavier than a glass of water, be able to put on clothes easier. Personal Factors Other Personal Factors That May Effect R and L THAs, asthma, Therapy/Recovery PT-OP-C Subjective Start: 07/01/21 10:42 Freq: Status: Active Protocol: Document 08/26/21 13:00 AMB (Rec: 08/26/21 13:19 AMB [id number]) OP-PT Subjective Patient Comments Patient Comments Pt reports she felt fine after last appt PT-OP-G Mobility & Gait Start: 07/01/21 10:42 Freq: Status: Active Protocol: Document 07/05/21 13:00 AMB (Rec: 07/06/21 10:36 AMB [email or web address]) OP Gait Assessment Comments Gait Comments Magdalena ambulates with bilateral walking sticks, she states this does not increase her shoulder pain. PT-OP-J Posture/Palpation/Skin Start: 07/01/21 10:42 Freq: Status: Active Protocol: Document 07/05/21 13:00 AMB (Rec: 07/06/21 10:14 AMB [email or web address]) Palpation Assessment Location One Palpation Location R shoulder Palpation Findings Muscle Guarding,Tenderness Palpation Details Tenderness throughout shoulder mostly at anterior shoulder PT-OP-K Range of Motion Start: 07/01/21 10:42 Freq: Status: Active Protocol: Document 08/26/21 13:00 AMB (Rec: 08/26/21 13:24 AMB [id number]) Shoulder Goniometric Range of Motion Shoulder Right Active Flexion 87 Extension 45 Abduction 70 PT-OP-M Strength Start: 07/01/21 10:42 Freq: Status: Active Protocol: Document 07/05/21 13:00 AMB (Rec: 07/06/21 10:15 AMB [email or web address]) Hand Valuer/Pinch Strength Hand Dominance Hand Dominance Right Hand Strength Right Valuer (lbs) 0 PT-OP-Q Treatments Start: 07/01/21 10:42 Freq: Status: Active Protocol: Document 08/26/21 13:00 AMB (Rec: 08/26/21 13:19 AMB [id number]) Cardio Equipment Upper Body Ergometer (UBE) Duration (Minutes) 6 Seat Position standing Height 3 Other 1' fwd/1' back Therapeutic Exercises Sitting Exercises shoulder blade squeeze Side bilateral Reps/Minutes 10 Comments cues to avoid trap contraction /elevation elbow flexion Reps/Minutes 2x10 Comments 2# gripping Side right Equipment Used AROM/towel cues for full closure Reps/Minutes 5min Comments cues for palmar metal plater, closing hand shldr flexion Side right Resistance AAROM with assist from therapist for 90-100degrees Equipment Used table Reps/Minutes 5min Standing Exercises t band ER Resistance TB 2 Reps/Minutes 2x8 Comments cues elbows in at sides rows Side bilateral Resistance TB2 Reps/Minutes 2x10 t band extension Standing Exercise Name shoulder extension Equipment Used TB2 Reps/Minutes 2x10 PT-OP-T Assessment and Plan Start: 07/01/21 10:42 Freq: Status: Active Protocol: Document 08/26/21 13:00 AMB (Rec: 08/26/21 13:19 AMB [id number]) Physical Therapy Assessment Goals Two Impairment shoulder ROM limited Short Term Goal (STG) Snehal will improve her shoulder PROM flexion to 130 degrees. 08/26: 120 degrees- progress made STG Duration 4 weeks Pattern Keeper Goal (LTG) Snehal will improve her shoulder AROM flexion to 130 degrees so that she can reach for objects above her head without pain. 08/26: 90 degrees LTG Duration 8 weeks One Impairment Valuer weakness Short Term Goal (STG) Snehal will improve her R metal plater strength to 30#. 08/26: 5# metal plater strength but pt has good pincher metal plater STG Duration 4 weeks- progress made Pattern Keeper Goal (LTG) Snehal will improve her metal plater strength so that she can hold her phone without dropping it. 08/26: Pt states has times where it is difficult but overall improving LTG Duration 8 weeks Assessment Summary Assessment Pt tolerated band exercises, arm bike, and some light weights but fatigues quickly. Overall feels like pain is getting better but the arm continues to fatigue quickly. Would continue to benefit from PT progression. Physical Therapy Plan Frequency and Duration Frequency of Treatment 2x/Week Duration of Treatment 4 weeks Plan of Care Start Date 08/26/21 Plan of Care End Date 09/23/21 Therapeutic Interventions Therapeutic Interventions Home Exercise Program,Manual Therapy,Neuromuscular Re- education,Self-Care/Home Management,Therapeutic Activities,Therapeutic Exercises Modalities Cold Pack/Ice Massage,Electric Stimulation,Hot Packs Next Visit Focus/Plan Next Note Type Treatment Note Next Visit Plan Discuss further treatment- pt has shown good improvement in AROM but likely will be limited in overhead shoulder movements in the equipment operator intermodal yard.
--- NOTE | 2021-08-26 15:51 | PT.OPPOC ---
Physical, Occupational & Speech Therapy At [facility] Current Diagnoses Primary osteoarthritis, right shoulder (08/26/21) Other specific joint derangements of unspecified shoulder, not elsewhere classified (08/26/21) Incomplete rotator cuff tear or rupture of right shoulder, not specified as traumatic (08/26/21) Visit Care Team Role Provider Type Cliff Murphy MD Attending Provider Non-Staff Family Provider Primary Care Provider Referring Provider Specialty: Family Practice Address: [address] [place] [address], [id number] Email: Plan Of Care PT-OP-T Assessment and Plan Start: 07/01/21 10:42 Freq: Status: Active Protocol: Document 08/26/21 13:00 AMB (Rec: 08/26/21 13:19 AMB [id number]) Physical Therapy Assessment Goals Two Impairment shoulder ROM limited Short Term Goal (STG) Snehal will improve her shoulder PROM flexion to 130 degrees. 08/26: 120 degrees- progress made STG Duration 4 weeks Ward Attendant Goal (LTG) Snehal will improve her shoulder AROM flexion to 130 degrees so that she can reach for objects above her head without pain. 08/26: 90 degrees LTG Duration 8 weeks One Impairment Public Address Systems Mechanic weakness Short Term Goal (STG) Snehal will improve her R reel slitter strength to 30#. 08/26: 5# reel slitter strength but pt has good pincher reel slitter STG Duration 4 weeks- progress made Ward Attendant Goal (LTG) Snehal will improve her reel slitter strength so that she can hold her phone without dropping it. 08/26: Pt states has times where it is difficult but overall improving LTG Duration 8 weeks Assessment Summary Assessment Pt tolerated band exercises, arm bike, and some light weights but fatigues quickly. Overall feels like pain is getting better but the arm continues to fatigue quickly. Would continue to benefit from PT progression. Physical Therapy Plan Frequency and Duration Frequency of Treatment 2x/Week Duration of Treatment 4 weeks Plan of Care Start Date 08/26/21 Plan of Care End Date 09/23/21 Therapeutic Interventions Therapeutic Interventions Home Exercise Program,Manual Therapy,Neuromuscular Re- education,Self-Care/Home Management,Therapeutic Activities,Therapeutic Exercises Modalities Cold Pack/Ice Massage,Electric Stimulation,Hot Packs Next Visit Focus/Plan Next Note Type Treatment Note Next Visit Plan Discuss further treatment- pt has shown good improvement in AROM but likely will be limited in overhead shoulder movements in the [facility]. Plan of Care Dates Plan of Care Start Date 08/26/21 Plan of Care End Date 09/23/21 Electronically Signed by: Patricia Van, PT 08/26/21 0900 Please Sign and Return: I have reviewed this Plan of Care and certify that the skilled therapy services above are required to meet the patient?s needs. Physician Signature Date Printed Name and Credentials Clinical Instructor Signature Printed Name and Credentials
--- NOTE | 2021-08-30 13:45 | PT.OTN ---
Current Diagnoses Primary osteoarthritis, right shoulder (08/30/21) Other specific joint derangements of unspecified shoulder, not elsewhere classified (08/30/21) Incomplete rotator cuff tear or rupture of right shoulder, not specified as traumatic (08/30/21) Physical Therapy Treatment Note PT-OP-A Visit Information Start: 07/01/21 10:42 Freq: Status: Active Protocol: Document 08/30/21 13:03 SP (Rec: 08/30/21 15:15 SP [id number]) Out-Patient Physical Therapy Visit Information Visit Information Visit Type Treatment Note Visit Note SPTA Alireza attended and assisted SPTA Leonela as needed . Visit Start Time 13:03 Visit Stop Time 13:45 Total Visit Minutes 43 Visit Number 16 Number of BLANK DRILLER Visits 1 PT-OP-B Current Condition Start: 07/01/21 10:42 Freq: Status: Active Protocol: Document 07/05/21 12:58 AMB (Rec: 07/05/21 13:33 AMB [id number]) Current Condition History of Current Condition Onset Date ~2018, pt unsure Current Complaints R shoulder History of Current Condition Pain started a couple of years ago after hip replacements and using the walker more. Feels like it got a bit better with taking tylenol. Reports intermittent tingling from the shoulder down in the hand, puts the hand to sleep limited with gripping because of that. Pt does have a caregiver who drives for her, helps her with dressing/ bathing. RHD. Pt has a difficult time providing a history and attends the appointment without her caregiver or any family. Prior Treatments and Tests MRI 06/17 showed partial thickness supraspinatus tear, severe osteoarthritis, mild bursitis, fraying of the labrum, infraspinatus and sbuscapularis tendonopathy. Treatment Goals Patient/Caregiver Goals Pt would like to warehouse picker something heavier than a glass of water, be able to put on clothes easier. Personal Factors Other Personal Factors That May Effect R and L THAs, asthma, Therapy/Recovery PT-OP-C Subjective Start: 07/01/21 10:42 Freq: Status: Active Protocol: Document 08/30/21 13:03 SP (Rec: 08/30/21 15:15 SP [id number]) OP-PT Subjective Patient Comments Patient Comments Pt. says she is able to do more things, reach things on shelves, has improved primary care provider, and gets less tired, less tingling in hands. Pt. reports that she lives in [place] and has to get a ride from there to make her visits. PT-OP-G Mobility & Gait Start: 07/01/21 10:42 Freq: Status: Active Protocol: Document 07/05/21 13:00 AMB (Rec: 07/06/21 10:36 AMB [email or web address]) OP Gait Assessment Comments Gait Comments Magdalena ambulates with bilateral walking sticks, she states this does not increase her shoulder pain. PT-OP-J Posture/Palpation/Skin Start: 07/01/21 10:42 Freq: Status: Active Protocol: Document 07/05/21 13:00 AMB (Rec: 07/06/21 10:14 AMB [email or web address]) Palpation Assessment Location One Palpation Location R shoulder Palpation Findings Muscle Guarding,Tenderness Palpation Details Tenderness throughout shoulder mostly at anterior shoulder PT-OP-K Range of Motion Start: 07/01/21 10:42 Freq: Status: Active Protocol: Document 08/26/21 13:00 AMB (Rec: 08/26/21 13:24 AMB [id number]) Shoulder Goniometric Range of Motion Shoulder Right Active Flexion 87 Extension 45 Abduction 70 PT-OP-M Strength Start: 07/01/21 10:42 Freq: Status: Active Protocol: Document 07/05/21 13:00 AMB (Rec: 07/06/21 10:15 AMB [email or web address]) Hand Hand Pattern Marker/Pinch Strength Hand Dominance Hand Dominance Right Hand Strength Right Hand Pattern Marker (lbs) 0 PT-OP-Q Treatments Start: 07/01/21 10:42 Freq: Status: Active Protocol: Document 08/30/21 13:03 SP (Rec: 08/30/21 15:15 SP [id number]) Cardio Equipment Upper Body Ergometer (UBE) Duration (Minutes) 6 RPM 120 Seat Position standing Height 4 Other 1 fwd/ 1' back Therapeutic Exercises Sitting Exercises shoulder blade squeeze Side bilateral Reps/Minutes 10 Comments cues to avoid trap contraction elbow flexion Reps/Minutes 2x10 Comments 2# gripping Sitting Exercise Name reviewed HEP Side right Equipment Used AROM/towel cues for full closure Reps/Minutes 5min Comments cues for palmar primary care provider, closing hand shldr flexion Side right Resistance AAROM with assist from therapist for 90-100degrees Reps/Minutes 5min table slides Sitting Exercise Name flexion Side bilateral Equipment Used standing, bent over table ( assimulate home at sink) Reps/Minutes 2x5 Comments demonstration anterior hip hinge with step back Standing Exercises t band ER Standing Exercise Name Bilateral together Resistance TB 1 Reps/Minutes 2x8 Comments cues elbows in at sides, scapular stabilization, and proper elbow angle. rows Side bilateral Resistance TB1 Reps/Minutes 2x10 Comments cued no [employer] recruitment wall walking Standing Exercise Name scaption Side right Resistance AROM Equipment Used wall Reps/Minutes 5 Comments able reach 1 above head t band extension Standing Exercise Name shoulder extension Resistance TB1 Reps/Minutes 2x10 Comments cued no [employer] recruitment PT-OP-T Assessment and Plan Start: 07/01/21 10:42 Freq: Status: Active Protocol: Document 08/30/21 13:03 SP (Rec: 08/30/21 15:15 SP [id number]) Physical Therapy Assessment Goals Two Impairment shoulder ROM limited Short Term Goal (STG) nSehal will improve her shoulder PROM flexion to 130 degrees. 08/26: 120 degrees- progress made STG Duration 4 weeks Maintenance Aide Goal (LTG) Snehal will improve her shoulder AROM flexion to 130 degrees so that she can reach for objects above her head without pain. 08/26: 90 degrees LTG Duration 8 weeks One Impairment Hand Pattern Marker weakness Short Term Goal (STG) Snehal will improve her R primary care provider strength to 30#. 08/26: 5# primary care provider strength but pt has good pincher primary care provider STG Duration 4 weeks- progress made Maintenance Aide Goal (LTG) Snehal will improve her primary care provider strength so that she can hold her phone without dropping it. 08/26: Pt states has times where it is difficult but overall improving LTG Duration 8 weeks Assessment Summary Assessment Pt tolerated band exercises, arm bike, and some light weights but fatigues quickly. Pt able to primary care provider better wrapping hand around washcloth , required Tb over lap during reps rows/ ext. Improved R shoulder flexion best peformed during table slides in standing. Physical Therapy Plan Frequency and Duration Frequency of Treatment 2x/Week Duration of Treatment 4 weeks Plan of Care Start Date 08/26/21 Plan of Care End Date 09/23/21 Therapeutic Interventions Therapeutic Interventions Home Exercise Program,Manual Therapy,Neuromuscular Re- education,Self-Care/Home Management,Therapeutic Activities,Therapeutic Exercises Modalities Cold Pack/Ice Massage,Electric Stimulation,Hot Packs Next Visit Focus/Plan Next Note Type Treatment Note Next Visit Plan next tx: add wand supine flexion. POC: Progress AROM for R shldr in standing as tolerated (pt' s back limits standing time), AAROM and gripping, can add in elbow strengthening as tolerated to encourage use of the whole arm. OH ROM as tolerated, assess supine.
--- NOTE | 2021-09-02 15:17 | PT.OTN ---
Current Diagnoses Primary osteoarthritis, right shoulder (09/02/21) Other specific joint derangements of unspecified shoulder, not elsewhere classified (09/02/21) Incomplete rotator cuff tear or rupture of right shoulder, not specified as traumatic (09/02/21) Physical Therapy Treatment Note PT-OP-A Visit Information Start: 07/01/21 10:42 Freq: Status: Active Protocol: Document 09/02/21 14:38 MA (Rec: 09/02/21 15:16 MA [id number]) Out-Patient Physical Therapy Visit Information Visit Information Visit Type Treatment Note Visit Start Time 14:30 Visit Stop Time 15:10 Total Visit Minutes 40 Visit Number 17 Number of MECHANICAL EXPERT Visits 2 PT-OP-B Current Condition Start: 07/01/21 10:42 Freq: Status: Active Protocol: Document 07/05/21 12:58 AMB (Rec: 07/05/21 13:33 AMB [id number]) Current Condition History of Current Condition Onset Date ~2018, pt unsure Current Complaints R shoulder History of Current Condition Pain started a couple of years ago after hip replacements and using the walker more. Feels like it got a bit better with taking tylenol. Reports intermittent tingling from the shoulder down in the hand, puts the hand to sleep limited with gripping because of that. Pt does have a caregiver who drives for her, helps her with dressing/ bathing. RHD. Pt has a difficult time providing a history and attends the appointment without her caregiver or any family. Prior Treatments and Tests MRI 06/17 showed partial thickness supraspinatus tear, severe osteoarthritis, mild bursitis, fraying of the labrum, infraspinatus and sbuscapularis tendonopathy. Treatment Goals Patient/Caregiver Goals Pt would like to mushroom picker something heavier than a glass of water, be able to put on clothes easier. Personal Factors Other Personal Factors That May Effect R and L THAs, asthma, Therapy/Recovery PT-OP-C Subjective Start: 07/01/21 10:42 Freq: Status: Active Protocol: Document 09/02/21 14:38 MA (Rec: 09/02/21 15:16 MA [id number]) OP-PT Subjective Patient Comments Patient Comments Pt feels her shoulder is about the same from the last session PT-OP-G Mobility & Gait Start: 07/01/21 10:42 Freq: Status: Active Protocol: Document 07/05/21 13:00 AMB (Rec: 07/06/21 10:36 AMB [email or web address]) OP Gait Assessment Comments Gait Comments Magdalena ambulates with bilateral walking sticks, she states this does not increase her shoulder pain. PT-OP-J Posture/Palpation/Skin Start: 07/01/21 10:42 Freq: Status: Active Protocol: Document 07/05/21 13:00 AMB (Rec: 07/06/21 10:14 AMB [email or web address]) Palpation Assessment Location One Palpation Location R shoulder Palpation Findings Muscle Guarding,Tenderness Palpation Details Tenderness throughout shoulder mostly at anterior shoulder PT-OP-K Range of Motion Start: 07/01/21 10:42 Freq: Status: Active Protocol: Document 08/26/21 13:00 AMB (Rec: 08/26/21 13:24 AMB [id number]) Shoulder Goniometric Range of Motion Shoulder Right Active Flexion 87 Extension 45 Abduction 70 PT-OP-M Strength Start: 07/01/21 10:42 Freq: Status: Active Protocol: Document 07/05/21 13:00 AMB (Rec: 07/06/21 10:15 AMB [email or web address]) Hand Computer Mechanic/Pinch Strength Hand Dominance Hand Dominance Right Hand Strength Right Computer Mechanic (lbs) 0 PT-OP-Q Treatments Start: 07/01/21 10:42 Freq: Status: Active Protocol: Document 09/02/21 14:38 MA (Rec: 09/02/21 15:16 MA [id number]) Therapeutic Exercises Sitting Exercises elbow flexion Reps/Minutes 2x10 Comments 2# gripping Side right Equipment Used AROM/towel cues for full closure Reps/Minutes 5min Comments cues for palmar mother repairer, closing hand Standing Exercises t band ER Standing Exercise Name Bilateral together Resistance TB 1 Reps/Minutes 2x8 Comments cues elbows in at sides, scapular stabilization, and proper elbow angle. PT-OP-T Assessment and Plan Start: 07/01/21 10:42 Freq: Status: Active Protocol: Document 09/02/21 14:38 MA (Rec: 09/02/21 15:16 MA [id number]) Physical Therapy Assessment Goals Two Impairment shoulder ROM limited Short Term Goal (STG) Snehal will improve her shoulder PROM flexion to 130 degrees. 08/26: 120 degrees- progress made STG Duration 4 weeks Fdc Goal (LTG) Snehal will improve her shoulder AROM flexion to 130 degrees so that she can reach for objects above her head without pain. 08/26: 90 degrees LTG Duration 8 weeks One Impairment Computer Mechanic weakness Short Term Goal (STG) Snehal will improve her R mother repairer strength to 30#. 08/26: 5# mother repairer strength but pt has good pincher mother repairer STG Duration 4 weeks- progress made Air Cargo Agent Goal (LTG) Snehal will improve her mother repairer strength so that she can hold her phone without dropping it. 08/26: Pt states has times where it is difficult but overall improving LTG Duration 8 weeks Assessment Summary Assessment Pt is able to get to 80 degrees AROM R shd flexion in standing and 65 degrees R shd ABD in standing showing good imrpovement from initial evaluation at 70 degrees flexion and 40 degrees abduction. She is improving mother repairer strength and no longer requires assistance to hold small hand weights for elbow flexion. Pt continues to fatigue with exercises after 6 -8 reps but can tolerate standing exercises for half of session today and has no c/o R shd pain. Physical Therapy Plan Frequency and Duration Frequency of Treatment 2x/Week Duration of Treatment 4 weeks Plan of Care Start Date 08/26/21 Plan of Care End Date 09/23/21 Therapeutic Interventions Therapeutic Interventions Home Exercise Program,Manual Therapy,Neuromuscular Re- education,Self-Care/Home Management,Therapeutic Activities,Therapeutic Exercises Modalities Cold Pack/Ice Massage,Electric Stimulation,Hot Packs Next Visit Focus/Plan Next Note Type Treatment Note Next Visit Plan next tx: add wand supine flexion. POC: Progress AROM for R shldr in standing as tolerated (pt' s back limits standing time), AAROM and gripping, can add in elbow strengthening as tolerated to encourage use of the whole arm. OH ROM as tolerated, assess supine.
--- NOTE | 2021-09-05 15:55 | PT.OTN ---
Current Diagnoses Primary osteoarthritis, right shoulder (09/05/21) Other specific joint derangements of unspecified shoulder, not elsewhere classified (09/05/21) Incomplete rotator cuff tear or rupture of right shoulder, not specified as traumatic (09/05/21) Physical Therapy Treatment Note PT-OP-A Visit Information Start: 07/01/21 10:42 Freq: Status: Active Protocol: Document 09/05/21 13:54 AMB (Rec: 09/05/21 14:13 AMB [id number]) Out-Patient Physical Therapy Visit Information Visit Information Visit Type Treatment Note Visit Start Time 13:50 Visit Stop Time 14:30 Total Visit Minutes 40 Visit Number 18 Number of DUMP GROUNDS CHECKER Visits 0 PT-OP-B Current Condition Start: 07/01/21 10:42 Freq: Status: Active Protocol: Document 07/05/21 12:58 AMB (Rec: 07/05/21 13:33 AMB [id number]) Current Condition History of Current Condition Onset Date ~2018, pt unsure Current Complaints R shoulder History of Current Condition Pain started a couple of years ago after hip replacements and using the walker more. Feels like it got a bit better with taking tylenol. Reports intermittent tingling from the shoulder down in the hand, puts the hand to sleep limited with gripping because of that. Pt does have a caregiver who drives for her, helps her with dressing/ bathing. RHD. Pt has a difficult time providing a history and attends the appointment without her caregiver or any family. Prior Treatments and Tests MRI 06/17 showed partial thickness supraspinatus tear, severe osteoarthritis, mild bursitis, fraying of the labrum, infraspinatus and sbuscapularis tendonopathy. Treatment Goals Patient/Caregiver Goals Pt would like to seed cone picker something heavier than a glass of water, be able to put on clothes easier. Personal Factors Other Personal Factors That May Effect R and L THAs, asthma, Therapy/Recovery PT-OP-C Subjective Start: 07/01/21 10:42 Freq: Status: Active Protocol: Document 09/05/21 13:54 AMB (Rec: 09/05/21 14:13 AMB [id number]) OP-PT Subjective Patient Comments Patient Comments Pt reports better gripping of weights without pain or dropping. PT-OP-G Mobility & Gait Start: 07/01/21 10:42 Freq: Status: Active Protocol: Document 07/05/21 13:00 AMB (Rec: 07/06/21 10:36 AMB [email or web address]) OP Gait Assessment Comments Gait Comments Magdalena ambulates with bilateral walking sticks, she states this does not increase her shoulder pain. PT-OP-J Posture/Palpation/Skin Start: 07/01/21 10:42 Freq: Status: Active Protocol: Document 07/05/21 13:00 AMB (Rec: 07/06/21 10:14 AMB [email or web address]) Palpation Assessment Location One Palpation Location R shoulder Palpation Findings Muscle Guarding,Tenderness Palpation Details Tenderness throughout shoulder mostly at anterior shoulder PT-OP-K Range of Motion Start: 07/01/21 10:42 Freq: Status: Active Protocol: Document 08/26/21 13:00 AMB (Rec: 08/26/21 13:24 AMB [id number]) Shoulder Goniometric Range of Motion Shoulder Right Active Flexion 87 Extension 45 Abduction 70 PT-OP-M Strength Start: 07/01/21 10:42 Freq: Status: Active Protocol: Document 07/05/21 13:00 AMB (Rec: 07/06/21 10:15 AMB [email or web address]) Hand Printed Circuit Layout Taper/Pinch Strength Hand Dominance Hand Dominance Right Hand Strength Right Printed Circuit Layout Taper (lbs) 0 PT-OP-Q Treatments Start: 07/01/21 10:42 Freq: Status: Active Protocol: Document 09/05/21 14:24 AMB (Rec: 09/05/21 14:28 AMB [id number]) Cardio Equipment Upper Body Ergometer (UBE) Duration (Minutes) 6 RPM 120 Seat Position standing Height 4 Other 1 fwd/ 1' back Therapeutic Exercises Sitting Exercises pulleys Sitting Exercise Name pt requests in standing Side bilateral Reps/Minutes 8min Comments cues for L UE assist to move R UE ER wand Sitting Exercise Name Flexion, ER & ABD to 90 degrees with wand Side right Resistance AAROM Equipment Used wand Reps/Minutes 2x15 reps Comments cued tall posture Standing Exercises t band ER Standing Exercise Name Bilateral together Resistance TB 1 Reps/Minutes 2x8 Comments cues elbows in at sides, scapular stabilization, and proper elbow angle. rows Side bilateral Resistance TB2 Reps/Minutes 2x10 Comments cued no [employer] recruitment t band extension Standing Exercise Name shoulder extension Resistance TB2 Reps/Minutes 2x10 Comments cued no UT recruitment PT-OP-T Assessment and Plan Start: 07/01/21 10:42 Freq: Status: Active Protocol: Document 09/05/21 13:45 AMB (Rec: 09/05/21 14:13 AMB [id number]) Physical Therapy Assessment Assessment Summary Assessment Pt is doing well with pulleys, wand exercises were challenging, but improving medical sonographer strength. Physical Therapy Plan Next Visit Focus/Plan Next Note Type Treatment Note Next Visit Plan Pt cannot tolerate supine but can try AAROM in seated, standing with walking sticks
--- NOTE | 2021-09-14 12:41 | PT.OTN ---
Current Diagnoses Primary osteoarthritis, right shoulder (09/14/21) Other specific joint derangements of unspecified shoulder, not elsewhere classified (09/14/21) Incomplete rotator cuff tear or rupture of right shoulder, not specified as traumatic (09/14/21) Physical Therapy Treatment Note PT-OP-A Visit Information Start: 07/01/21 10:42 Freq: Status: Active Protocol: Document 09/14/21 12:01 MA (Rec: 09/14/21 12:41 MA [id number]) Out-Patient Physical Therapy Visit Information Visit Information Visit Type Treatment Note Visit Start Time 11:58 Visit Stop Time 12:41 Total Visit Minutes 43 Visit Number 19 Number of RETAIL ADVERTISING EXECUTIVE Visits 1 PT-OP-B Current Condition Start: 07/01/21 10:42 Freq: Status: Active Protocol: Document 07/05/21 12:58 AMB (Rec: 07/05/21 13:33 AMB [id number]) Current Condition History of Current Condition Onset Date ~2018, pt unsure Current Complaints R shoulder History of Current Condition Pain started a couple of years ago after hip replacements and using the walker more. Feels like it got a bit better with taking tylenol. Reports intermittent tingling from the shoulder down in the hand, puts the hand to sleep limited with gripping because of that. Pt does have a caregiver who drives for her, helps her with dressing/ bathing. RHD. Pt has a difficult time providing a history and attends the appointment without her caregiver or any family. Prior Treatments and Tests MRI 06/17 showed partial thickness supraspinatus tear, severe osteoarthritis, mild bursitis, fraying of the labrum, infraspinatus and sbuscapularis tendonopathy. Treatment Goals Patient/Caregiver Goals Pt would like to product picker something heavier than a glass of water, be able to put on clothes easier. Personal Factors Other Personal Factors That May Effect R and L THAs, asthma, Therapy/Recovery PT-OP-C Subjective Start: 07/01/21 10:42 Freq: Status: Active Protocol: Document 09/14/21 12:01 MA (Rec: 09/14/21 12:41 MA [id number]) OP-PT Subjective Patient Comments Patient Comments Pt reports being unable to make it to therapy due to bridge closure on Sunday. She states she is happy to make it here today. PT-OP-G Mobility & Gait Start: 07/01/21 10:42 Freq: Status: Active Protocol: Document 07/05/21 13:00 AMB (Rec: 07/06/21 10:36 AMB [email or web address]) OP Gait Assessment Comments Gait Comments Magdalena ambulates with bilateral walking sticks, she states this does not increase her shoulder pain. PT-OP-J Posture/Palpation/Skin Start: 07/01/21 10:42 Freq: Status: Active Protocol: Document 07/05/21 13:00 AMB (Rec: 07/06/21 10:14 AMB [email or web address]) Palpation Assessment Location One Palpation Location R shoulder Palpation Findings Muscle Guarding,Tenderness Palpation Details Tenderness throughout shoulder mostly at anterior shoulder PT-OP-K Range of Motion Start: 07/01/21 10:42 Freq: Status: Active Protocol: Document 08/26/21 13:00 AMB (Rec: 08/26/21 13:24 AMB [id number]) Shoulder Goniometric Range of Motion Shoulder Right Active Flexion 87 Extension 45 Abduction 70 PT-OP-M Strength Start: 07/01/21 10:42 Freq: Status: Active Protocol: Document 07/05/21 13:00 AMB (Rec: 07/06/21 10:15 AMB [email or web address]) Hand Molding Sander/Pinch Strength Hand Dominance Hand Dominance Right Hand Strength Right Molding Sander (lbs) 0 PT-OP-Q Treatments Start: 07/01/21 10:42 Freq: Status: Active Protocol: Document 09/14/21 12:01 MA (Rec: 09/14/21 12:41 MA [id number]) Cardio Equipment Upper Body Ergometer (UBE) Duration (Minutes) 6 Seat Position standing Height 6 Other 1 fwd/ 1' back Therapeutic Exercises Sitting Exercises pronation/sup Side bilateral Reps/Minutes 3x10 Comments while sitting in chair during breaks, no resistance elbow flexion Equipment Used 2# Reps/Minutes 2x10 Comments pt requires min A today to complete full ROM on RUE pulleys Sitting Exercise Name in standing Side bilateral Reps/Minutes 8min Comments cues for L UE assist to move R UE ER wand Sitting Exercise Name Flexion, ER & ABD to 90 degrees with wand Side right Resistance AAROM Equipment Used wand Reps/Minutes 2x15 reps Comments cued tall posture Standing Exercises rows Standing Exercise Name with chin tucks Side bilateral Resistance TB2 Reps/Minutes 2x10 Comments cued no UT recruitment Other Exercises Posture Comments in sitting and standing- working on scap retraction PT-OP-T Assessment and Plan Start: 07/01/21 10:42 Freq: Status: Active Protocol: Document 09/14/21 12:01 MA (Rec: 09/14/21 12:41 MA [id number]) Physical Therapy Assessment Goals Two Impairment shoulder ROM limited Short Term Goal (STG) Snehal will improve her shoulder PROM flexion to 130 degrees. 08/26: 120 degrees- progress made STG Duration 4 weeks Residential Goal (LTG) Snehal will improve her shoulder AROM flexion to 130 degrees so that she can reach for objects above her head without pain. 08/26: 90 degrees LTG Duration 8 weeks One Impairment Molding Sander weakness Short Term Goal (STG) Snehal will improve her R vegetable harvest worker strength to 30#. 08/26: 5# vegetable harvest worker strength but pt has good pincher vegetable harvest worker STG Duration 4 weeks- progress made Beef Cattle Farm Worker Goal (LTG) Snehal will improve her vegetable harvest worker strength so that she can hold her phone without dropping it. 08/26: Pt states has times where it is difficult but overall improving LTG Duration 8 weeks Assessment Summary Assessment Pt requires cues not to lean laterally today throughout blossom and wand exercises. She has minor c/o numbness in R hand today when increasing reps of exercises but numbness subsides with rest. Physical Therapy Plan Frequency and Duration Frequency of Treatment 2x/Week Duration of Treatment 4 weeks Plan of Care Start Date 08/26/21 Plan of Care End Date 09/23/21 Therapeutic Interventions Therapeutic Interventions Home Exercise Program,Manual Therapy,Neuromuscular Re- education,Self-Care/Home Management,Therapeutic Activities,Therapeutic Exercises Modalities Cold Pack/Ice Massage,Electric Stimulation,Hot Packs Next Visit Focus/Plan Next Note Type Progress Note Next Visit Plan Update POC ending on 09/23 Pt cannot tolerate supine but can try AAROM in seated, standing with walking sticks
--- NOTE | 2021-09-20 14:47 | PT.OTN ---
Current Diagnoses Primary osteoarthritis, right shoulder (09/20/21) Other specific joint derangements of unspecified shoulder, not elsewhere classified (09/20/21) Incomplete rotator cuff tear or rupture of right shoulder, not specified as traumatic (09/20/21) Physical Therapy Treatment Note PT-OP-A Visit Information Start: 07/01/21 10:42 Freq: Status: Active Protocol: Document 09/20/21 10:30 AMB (Rec: 09/20/21 11:05 AMB [id number]) Out-Patient Physical Therapy Visit Information Visit Information Visit Type Progress Note Visit Start Time 10:30 Visit Stop Time 11:15 Total Visit Minutes 45 Visit Number 20 PT-OP-B Current Condition Start: 07/01/21 10:42 Freq: Status: Active Protocol: Document 07/05/21 12:58 AMB (Rec: 07/05/21 13:33 AMB [id number]) Current Condition History of Current Condition Onset Date ~2018, pt unsure Current Complaints R shoulder History of Current Condition Pain started a couple of years ago after hip replacements and using the walker more. Feels like it got a bit better with taking tylenol. Reports intermittent tingling from the shoulder down in the hand, puts the hand to sleep limited with gripping because of that. Pt does have a caregiver who drives for her, helps her with dressing/ bathing. RHD. Pt has a difficult time providing a history and attends the appointment without her caregiver or any family. Prior Treatments and Tests MRI 06/17 showed partial thickness supraspinatus tear, severe osteoarthritis, mild bursitis, fraying of the labrum, infraspinatus and sbuscapularis tendonopathy. Treatment Goals Patient/Caregiver Goals Pt would like to strip picker something heavier than a glass of water, be able to put on clothes easier. Personal Factors Other Personal Factors That May Effect R and L THAs, asthma, Therapy/Recovery PT-OP-C Subjective Start: 07/01/21 10:42 Freq: Status: Active Protocol: Document 09/20/21 10:30 AMB (Rec: 09/20/21 11:05 AMB [id number]) OP-PT Subjective Patient Comments Patient Comments Pt reports overall shoulder is moving better, she is doing her exercises, taking tylenol and ibuprofen for pain. PT-OP-G Mobility & Gait Start: 07/01/21 10:42 Freq: Status: Active Protocol: Document 07/05/21 13:00 AMB (Rec: 07/06/21 10:36 AMB [email or web address]) OP Gait Assessment Comments Gait Comments Magdalena ambulates with bilateral walking sticks, she states this does not increase her shoulder pain. PT-OP-J Posture/Palpation/Skin Start: 07/01/21 10:42 Freq: Status: Active Protocol: Document 07/05/21 13:00 AMB (Rec: 07/06/21 10:14 AMB [email or web address]) Palpation Assessment Location One Palpation Location R shoulder Palpation Findings Muscle Guarding,Tenderness Palpation Details Tenderness throughout shoulder mostly at anterior shoulder PT-OP-K Range of Motion Start: 07/01/21 10:42 Freq: Status: Active Protocol: Document 09/20/21 10:45 AMB (Rec: 09/20/21 10:53 AMB [id number]) Shoulder Goniometric Range of Motion Shoulder Right Active Flexion 110 Extension 60 Abduction 80 Left Active Shoulder ROM WFL Yes Testing Position Sitting Right Passive Flexion 120 Abduction 70 PT-OP-M Strength Start: 07/01/21 10:42 Freq: Status: Active Protocol: Document 07/05/21 13:00 AMB (Rec: 07/06/21 10:15 AMB [email or web address]) Hand Separator Tender/Pinch Strength Hand Dominance Hand Dominance Right Hand Strength Right Separator Tender (lbs) 0 PT-OP-Q Treatments Start: 07/01/21 10:42 Freq: Status: Active Protocol: Document 09/20/21 10:30 AMB (Rec: 09/20/21 11:05 AMB [id number]) Cardio Equipment Upper Body Ergometer (UBE) Duration (Minutes) 6 Seat Position standing Height 6 Other 1 fwd/ 1' back Therapeutic Exercises Sitting Exercises elbow flexion Equipment Used 2# Reps/Minutes 2x10 Comments able to complete first 5 reps without assist Standing Exercises t band ER Standing Exercise Name Bilateral together Resistance TB 1 Reps/Minutes 2x8 Comments cues elbows in at sides, scapular stabilization, and proper elbow angle. rows Standing Exercise Name with chin tucks Side bilateral Resistance TB2 Reps/Minutes 2x10 Comments cued no [employer] recruitment t band extension Standing Exercise Name shoulder extension Resistance TB2 Reps/Minutes 2x10 Comments cued no [employer] recruitment PT-OP-T Assessment and Plan Start: 07/01/21 10:42 Freq: Status: Active Protocol: Document 09/20/21 10:38 AMB (Rec: 09/20/21 10:42 AMB [id number]) Physical Therapy Assessment Goals Two Impairment shoulder ROM limited Short Term Goal (STG) Snehal will improve her shoulder PROM flexion to 130 degrees. 120 degrees STG Duration PROGRESS MADE Mcc Goal (LTG) Snehal will improve her shoulder AROM flexion to 130 degrees so that she can reach for objects above her head without pain. 110 degrees LTG Duration PROGRESS MADE One Impairment Separator Tender weakness Short Term Goal (STG) Snehal will improve her R recreation director strength to 30#. 08/26: 5# recreation director strength but pt has good pincher recreation director STG Duration 4 weeks- progress made Data Warehouse Developer Goal (LTG) Snehal will improve her recreation director strength so that she can hold her phone without dropping it. Seems to depend on elbow flexion. LTG Duration 8 weeks Assessment Summary Assessment Snehal has shown good improvement in ROM both passively and actively. Will likely continue to be impaired to a certain level, but ROM is continuing to progress in comparison to last progress note at this point. Pt's pain is well managed with her current tylenol and ibuprofen regime. 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 Pt would benefit from a short bout of continued PT to finalize HEP to maximize her strength, ROM, and reduce her pain as much as possible. Physical Therapy Plan Frequency and Duration Frequency of Treatment 2x/Week Duration of Treatment 6 weeks Plan of Care Start Date 09/20/21 Plan of Care End Date 11/01/21 Therapeutic Interventions Therapeutic Interventions Home Exercise Program,Manual Therapy,Neuromuscular Re- education,Self-Care/Home Management,Therapeutic Activities,Therapeutic Exercises Modalities Cold Pack/Ice Massage,Electric Stimulation,Hot Packs Next Visit Focus/Plan Next Note Type Progress Note Next Visit Plan Follow up on scheduling ( requested 1x/week) Pt cannot tolerate supine but can try AAROM in seated, standing with walking sticks
--- NOTE | 2021-09-20 14:48 | PT.OPPOC ---
Physical, Occupational & Speech Therapy At [facility] Current Diagnoses Primary osteoarthritis, right shoulder (09/20/21) Other specific joint derangements of unspecified shoulder, not elsewhere classified (09/20/21) Incomplete rotator cuff tear or rupture of right shoulder, not specified as traumatic (09/20/21) Visit Care Team Role Provider Type Cliff Murphy MD Attending Provider Non-Staff Family Provider Primary Care Provider Referring Provider Specialty: Family Practice Address: [address] [place] [id number] Email: Plan Of Care PT-OP-T Assessment and Plan Start: 07/01/21 10:42 Freq: Status: Active Protocol: Document 09/20/21 10:38 AMB (Rec: 09/20/21 10:42 AMB [id number]) Physical Therapy Assessment Goals Two Impairment shoulder ROM limited Short Term Goal (STG) Snehal will improve her shoulder PROM flexion to 130 degrees. 120 degrees STG Duration PROGRESS MADE Half-Way Goal (LTG) Snehal will improve her shoulder AROM flexion to 130 degrees so that she can reach for objects above her head without pain. 110 degrees LTG Duration PROGRESS MADE One Impairment Jowl Trimmer weakness Short Term Goal (STG) Snehal will improve her R honeycomb blanket maker strength to 30#. 08/26: 5# honeycomb blanket maker strength but pt has good pincher honeycomb blanket maker STG Duration 4 weeks- progress made Behaviorist Goal (LTG) Snehal will improve her honeycomb blanket maker strength so that she can hold her phone without dropping it. Seems to depend on elbow flexion. LTG Duration 8 weeks Assessment Summary Assessment Snehal has shown good improvement in ROM both passively and actively. Will likely continue to be impaired to a certain level, but ROM is continuing to progress in comparison to last progress note at this point. Pt's pain is well managed with her current tylenol and ibuprofen regime. 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 Pt would benefit from a short bout of continued PT to finalize HEP to maximize her strength, ROM, and reduce her pain as much as possible. Physical Therapy Plan Frequency and Duration Frequency of Treatment 2x/Week Duration of Treatment 6 weeks Plan of Care Start Date 09/20/21 Plan of Care End Date 11/01/21 Therapeutic Interventions Therapeutic Interventions Home Exercise Program,Manual Therapy,Neuromuscular Re- education,Self-Care/Home Management,Therapeutic Activities,Therapeutic Exercises Modalities Cold Pack/Ice Massage,Electric Stimulation,Hot Packs Next Visit Focus/Plan Next Note Type Progress Note Next Visit Plan Follow up on scheduling ( requested 1x/week) Pt cannot tolerate supine but can try AAROM in seated, standing with walking sticks Plan of Care Dates Plan of Care Start Date 09/20/21 Plan of Care End Date 11/01/21 Electronically Signed by: Patricia Van, PT 09/20/21 0721 Please Sign and Return: I have reviewed this Plan of Care and certify that the skilled therapy services above are required to meet the patient?s needs. Physician Signature Date Printed Name and Credentials Clinical Instructor Signature Printed Name and Credentials
--- NOTE | 2021-09-26 14:27 | PT.OTN ---
Current Diagnoses Primary osteoarthritis, right shoulder (09/26/21) Other specific joint derangements of unspecified shoulder, not elsewhere classified (09/26/21) Incomplete rotator cuff tear or rupture of right shoulder, not specified as traumatic (09/26/21) Physical Therapy Treatment Note PT-OP-A Visit Information Start: 07/01/21 10:42 Freq: Status: Active Protocol: Document 09/26/21 13:41 MA (Rec: 09/26/21 14:27 MA [id number]) Out-Patient Physical Therapy Visit Information Visit Information Visit Type Treatment Note Visit Start Time 13:45 Visit Stop Time 14:25 Total Visit Minutes 40 Visit Number 21 Number of NAVAL INSPECTOR Visits 1 PT-OP-B Current Condition Start: 07/01/21 10:42 Freq: Status: Active Protocol: Document 07/05/21 12:58 AMB (Rec: 07/05/21 13:33 AMB [id number]) Current Condition History of Current Condition Onset Date ~2018, pt unsure Current Complaints R shoulder History of Current Condition Pain started a couple of years ago after hip replacements and using the walker more. Feels like it got a bit better with taking tylenol. Reports intermittent tingling from the shoulder down in the hand, puts the hand to sleep limited with gripping because of that. Pt does have a caregiver who drives for her, helps her with dressing/ bathing. RHD. Pt has a difficult time providing a history and attends the appointment without her caregiver or any family. Prior Treatments and Tests MRI 06/17 showed partial thickness supraspinatus tear, severe osteoarthritis, mild bursitis, fraying of the labrum, infraspinatus and sbuscapularis tendonopathy. Treatment Goals Patient/Caregiver Goals Pt would like to pickle pumper something heavier than a glass of water, be able to put on clothes easier. Personal Factors Other Personal Factors That May Effect R and L THAs, asthma, Therapy/Recovery PT-OP-C Subjective Start: 07/01/21 10:42 Freq: Status: Active Protocol: Document 09/26/21 13:41 MA (Rec: 09/26/21 14:27 MA [id number]) OP-PT Subjective Patient Comments Patient Comments Snehal states she has scheduled out once a week through the end of the year PT-OP-G Mobility & Gait Start: 07/01/21 10:42 Freq: Status: Active Protocol: Document 07/05/21 13:00 AMB (Rec: 07/06/21 10:36 AMB [email or web address]) OP Gait Assessment Comments Gait Comments Magdalena ambulates with bilateral walking sticks, she states this does not increase her shoulder pain. PT-OP-J Posture/Palpation/Skin Start: 07/01/21 10:42 Freq: Status: Active Protocol: Document 07/05/21 13:00 AMB (Rec: 07/06/21 10:14 AMB [email or web address]) Palpation Assessment Location One Palpation Location R shoulder Palpation Findings Muscle Guarding,Tenderness Palpation Details Tenderness throughout shoulder mostly at anterior shoulder PT-OP-K Range of Motion Start: 07/01/21 10:42 Freq: Status: Active Protocol: Document 09/20/21 10:45 AMB (Rec: 09/20/21 10:53 AMB [id number]) Shoulder Goniometric Range of Motion Shoulder Right Active Flexion 110 Extension 60 Abduction 80 Left Active Shoulder ROM WFL Yes Testing Position Sitting Right Passive Flexion 120 Abduction 70 PT-OP-M Strength Start: 07/01/21 10:42 Freq: Status: Active Protocol: Document 07/05/21 13:00 AMB (Rec: 07/06/21 10:15 AMB [email or web address]) Hand Metal Ceiling Hanger/Pinch Strength Hand Dominance Hand Dominance Right Hand Strength Right Metal Ceiling Hanger (lbs) 0 PT-OP-Q Treatments Start: 07/01/21 10:42 Freq: Status: Active Protocol: Document 09/26/21 13:41 MA (Rec: 09/26/21 14:27 MA [id number]) Cardio Equipment Upper Body Ergometer (UBE) Duration (Minutes) 6 Seat Position standing Height 6 Other 1 fwd/ 1' back Therapeutic Exercises Sitting Exercises elbow flexion Equipment Used 1.1# ball Reps/Minutes 2x10 Comments able to complete first 5 reps without assist gripping Side right Equipment Used AROM/towel cues for full closure Reps/Minutes 5min Comments cues for palmar design chief, closing hand shldr flexion Sitting Exercise Name Cues to avoid shd elevation Side right Resistance AAROM with assist from therapist for 90-100degrees Reps/Minutes 5min Standing Exercises t band ER Standing Exercise Name Bilateral together Resistance TB 1 Reps/Minutes 2x8 Comments cues elbows in at sides, scapular stabilization, and proper elbow angle. rows Standing Exercise Name with chin tucks Side bilateral Resistance TB2 Reps/Minutes 2x10 Comments cued no UT recruitment t band extension Standing Exercise Name shoulder extension Resistance TB2 Reps/Minutes 2x10 Comments cued no UT recruitment PT-OP-T Assessment and Plan Start: 07/01/21 10:42 Freq: Status: Active Protocol: Document 09/26/21 13:41 MA (Rec: 09/26/21 14:27 MA [email or web address]) Physical Therapy Assessment Goals Two Impairment shoulder ROM limited Short Term Goal (STG) Snehal will improve her shoulder PROM flexion to 130 degrees. 120 degrees STG Duration PROGRESS MADE Retirement Goal (LTG) Snehal will improve her shoulder AROM flexion to 130 degrees so that she can reach for objects above her head without pain. 110 degrees LTG Duration PROGRESS MADE One Impairment Metal Ceiling Hanger weakness Short Term Goal (STG) Snehal will improve her R design chief strength to 30#. 08/26: 5# design chief strength but pt has good pincher design chief STG Duration 4 weeks- progress made Superintendent Production Goal (LTG) Snehal will improve her design chief strength so that she can hold her phone without dropping it. Seems to depend on elbow flexion. LTG Duration 8 weeks Assessment Summary Assessment Pt requires heavy cues today to avoid UT recuitment during standing band exercises. She is able to improve her design chief and has no difficulty holding 1# weighted ball when arm is pronated or supinated for elbow flexion exercise. Encouraged pt to continue working on R shd AAROM holding her walking stick for flexion , ER, and ABD. Physical Therapy Plan Frequency and Duration Frequency of Treatment 2x/Week Duration of Treatment 6 weeks Plan of Care Start Date 09/20/21 Plan of Care End Date 11/01/21 Therapeutic Interventions Therapeutic Interventions Home Exercise Program,Manual Therapy,Neuromuscular Re- education,Self-Care/Home Management,Therapeutic Activities,Therapeutic Exercises Modalities Cold Pack/Ice Massage,Electric Stimulation,Hot Packs Next Visit Focus/Plan Next Note Type Progress Note Next Visit Plan Follow up on scheduling ( requested 1x/week) Pt cannot tolerate supine but can try AAROM in seated, standing with walking sticks
--- NOTE | 2021-09-28 11:11 | PT.OTN ---
Current Diagnoses Primary osteoarthritis, right shoulder (09/28/21) Other specific joint derangements of unspecified shoulder, not elsewhere classified (09/28/21) Incomplete rotator cuff tear or rupture of right shoulder, not specified as traumatic (09/28/21) Physical Therapy Treatment Note PT-OP-A Visit Information Start: 07/01/21 10:42 Freq: Status: Active Protocol: Document 09/28/21 10:30 AMB (Rec: 09/28/21 10:59 AMB [id number]) Out-Patient Physical Therapy Visit Information Visit Information Visit Type Treatment Note Visit Start Time 10:30 Visit Stop Time 11:15 Total Visit Minutes 45 Visit Number 22 PT-OP-B Current Condition Start: 07/01/21 10:42 Freq: Status: Active Protocol: Document 07/05/21 12:58 AMB (Rec: 07/05/21 13:33 AMB [id number]) Current Condition History of Current Condition Onset Date ~2018, pt unsure Current Complaints R shoulder History of Current Condition Pain started a couple of years ago after hip replacements and using the walker more. Feels like it got a bit better with taking tylenol. Reports intermittent tingling from the shoulder down in the hand, puts the hand to sleep limited with gripping because of that. Pt does have a caregiver who drives for her, helps her with dressing/ bathing. RHD. Pt has a difficult time providing a history and attends the appointment without her caregiver or any family. Prior Treatments and Tests MRI 06/17 showed partial thickness supraspinatus tear, severe osteoarthritis, mild bursitis, fraying of the labrum, infraspinatus and sbuscapularis tendonopathy. 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 Personal Factors Other Personal Factors That May Effect R and L THAs, asthma, Therapy/Recovery PT-OP-C Subjective Start: 07/01/21 10:42 Freq: Status: Active Protocol: Document 09/28/21 10:30 AMB (Rec: 09/28/21 10:59 AMB [id number]) OP-PT Subjective Patient Comments Patient Comments Snehal says exercises at home are going fine, still taking pain medications because I have other aches and pains too PT-OP-G Mobility & Gait Start: 07/01/21 10:42 Freq: Status: Active Protocol: Document 07/05/21 13:00 AMB (Rec: 07/06/21 10:36 AMB [email or web address]) OP Gait Assessment Comments Gait Comments Magdalena ambulates with bilateral walking sticks, she states this does not increase her shoulder pain. PT-OP-J Posture/Palpation/Skin Start: 07/01/21 10:42 Freq: Status: Active Protocol: Document 07/05/21 13:00 AMB (Rec: 07/06/21 10:14 AMB [email or web address]) Palpation Assessment Location One Palpation Location R shoulder Palpation Findings Muscle Guarding,Tenderness Palpation Details Tenderness throughout shoulder mostly at anterior shoulder PT-OP-K Range of Motion Start: 07/01/21 10:42 Freq: Status: Active Protocol: Document 09/20/21 10:45 AMB (Rec: 09/20/21 10:53 AMB [id number]) Shoulder Goniometric Range of Motion Shoulder Right Active Flexion 110 Extension 60 Abduction 80 Left Active Shoulder ROM WFL Yes Testing Position Sitting Right Passive Flexion 120 Abduction 70 PT-OP-M Strength Start: 07/01/21 10:42 Freq: Status: Active Protocol: Document 07/05/21 13:00 AMB (Rec: 07/06/21 10:15 AMB [email or web address]) Hand Bridge Painter/Pinch Strength Hand Dominance Hand Dominance Right Hand Strength Right Bridge Painter (lbs) 0 PT-OP-Q Treatments Start: 07/01/21 10:42 Freq: Status: Active Protocol: Document 09/28/21 10:30 AMB (Rec: 09/28/21 10:59 AMB [id number]) Cardio Equipment Upper Body Ergometer (UBE) Duration (Minutes) 6 Seat Position standing Height 6 Other 1 fwd/ 1' back Therapeutic Exercises Sitting Exercises elbow flexion Equipment Used 2# Reps/Minutes 2x10 Comments all without assist pulleys Sitting Exercise Name in standing Side bilateral Reps/Minutes 8min Comments cues for L UE assist to move R UE shldr flexion Sitting Exercise Name Cues to avoid shd elevation Side right Resistance 1# Reps/Minutes 2x10 Comments challenging after 80 degrees Standing Exercises t band ER Standing Exercise Name Bilateral together Resistance TB 1 Reps/Minutes 2x8 Comments cues elbows in at sides, scapular stabilization, and proper elbow angle. rows Standing Exercise Name with chin tucks Side bilateral Resistance TB2 Reps/Minutes 2x10 Comments cued no UT recruitment t band extension Standing Exercise Name shoulder extension Resistance TB2 Reps/Minutes 2x10 Comments cued no UT recruitment PT-OP-T Assessment and Plan Start: 07/01/21 10:42 Freq: Status: Active Protocol: Document 09/28/21 10:30 AMB (Rec: 09/28/21 10:59 AMB [id number]) Physical Therapy Assessment Goals Two Impairment shoulder ROM limited Short Term Goal (STG) Snehal will improve her shoulder PROM flexion to 130 degrees. 120 degrees STG Duration PROGRESS MADE Bill Board Poster Goal (LTG) Snehal will improve her shoulder AROM flexion to 130 degrees so that she can reach for objects above her head without pain. 110 degrees LTG Duration PROGRESS MADE One Impairment Bridge Painter weakness Short Term Goal (STG) Snehal will improve her R adjustment examiner strength to 30#. 08/26: 5# adjustment examiner strength but pt has good pincher adjustment examiner STG Duration 4 weeks- progress made Bill Board Poster Goal (LTG) Snehal will improve her adjustment examiner strength so that she can hold her phone without dropping it. Seems to depend on elbow flexion. LTG Duration 8 weeks Assessment Summary Assessment Better form today, pt able to hold weights better today, but does report difficulty with t band. Physical Therapy Plan Next Visit Focus/Plan Next Note Type Treatment Note Next Visit Plan Finalize HEP
--- NOTE | 2021-10-06 15:47 | PT.OTN ---
Current Diagnoses Primary osteoarthritis, right shoulder (10/06/21) Other specific joint derangements of unspecified shoulder, not elsewhere classified (10/06/21) Incomplete rotator cuff tear or rupture of right shoulder, not specified as traumatic (10/06/21) Physical Therapy Treatment Note PT-OP-A Visit Information Start: 07/01/21 10:42 Freq: Status: Active Protocol: Document 10/06/21 13:45 AMB (Rec: 10/06/21 14:29 AMB [id number]) Out-Patient Physical Therapy Visit Information Visit Information Visit Type Treatment Note Visit Start Time 13:45 Visit Stop Time 14:30 Total Visit Minutes 45 Visit Number 23 PT-OP-B Current Condition Start: 07/01/21 10:42 Freq: Status: Active Protocol: Document 07/05/21 12:58 AMB (Rec: 07/05/21 13:33 AMB [id number]) Current Condition History of Current Condition Onset Date ~2018, pt unsure Current Complaints R shoulder History of Current Condition Pain started a couple of years ago after hip replacements and using the walker more. Feels like it got a bit better with taking tylenol. Reports intermittent tingling from the shoulder down in the hand, puts the hand to sleep limited with gripping because of that. Pt does have a caregiver who drives for her, helps her with dressing/ bathing. RHD. Pt has a difficult time providing a history and attends the appointment without her caregiver or any family. Prior Treatments and Tests MRI 06/17 showed partial thickness supraspinatus tear, severe osteoarthritis, mild bursitis, fraying of the labrum, infraspinatus and sbuscapularis tendonopathy. Treatment Goals Patient/Caregiver Goals Pt would like to roller picker something heavier than a glass of water, be able to put on clothes easier. Personal Factors Other Personal Factors That May Effect R and L THAs, asthma, Therapy/Recovery PT-OP-C Subjective Start: 07/01/21 10:42 Freq: Status: Active Protocol: Document 10/06/21 13:45 AMB (Rec: 10/06/21 14:29 AMB [id number]) OP-PT Subjective Patient Comments Patient Comments Snehal does her exercises once/ day and also does some AROM activities throughout the day while waiting for the water to boil PT-OP-G Mobility & Gait Start: 07/01/21 10:42 Freq: Status: Active Protocol: Document 07/05/21 13:00 AMB (Rec: 07/06/21 10:36 AMB [email or web address]) OP Gait Assessment Comments Gait Comments Magdalena ambulates with bilateral walking sticks, she states this does not increase her shoulder pain. PT-OP-J Posture/Palpation/Skin Start: 07/01/21 10:42 Freq: Status: Active Protocol: Document 07/05/21 13:00 AMB (Rec: 07/06/21 10:14 AMB [email or web address]) Palpation Assessment Location One Palpation Location R shoulder Palpation Findings Muscle Guarding,Tenderness Palpation Details Tenderness throughout shoulder mostly at anterior shoulder PT-OP-K Range of Motion Start: 07/01/21 10:42 Freq: Status: Active Protocol: Document 09/20/21 10:45 AMB (Rec: 09/20/21 10:53 AMB [id number]) Shoulder Goniometric Range of Motion Shoulder Right Active Flexion 110 Extension 60 Abduction 80 Left Active Shoulder ROM WFL Yes Testing Position Sitting Right Passive Flexion 120 Abduction 70 PT-OP-M Strength Start: 07/01/21 10:42 Freq: Status: Active Protocol: Document 07/05/21 13:00 AMB (Rec: 07/06/21 10:15 AMB [email or web address]) Hand Ratings Analyst/Pinch Strength Hand Dominance Hand Dominance Right Hand Strength Right Ratings Analyst (lbs) 0 PT-OP-Q Treatments Start: 07/01/21 10:42 Freq: Status: Active Protocol: Document 10/06/21 13:45 AMB (Rec: 10/06/21 14:29 AMB [id number]) Cardio Equipment Upper Body Ergometer (UBE) Duration (Minutes) 6 Seat Position standing Height 6 Other 1 fwd/ 1' back Therapeutic Exercises Sitting Exercises elbow flexion Equipment Used 2# Reps/Minutes 2x10 Comments all without assist- supinated and then pronated pulleys Sitting Exercise Name in standing Side bilateral Reps/Minutes 8min Comments cues for L UE assist to move R UE shldr flexion Sitting Exercise Name Cues to avoid shd elevation Side right Resistance 1# Reps/Minutes 2x10 Comments challenging after 80 degrees Standing Exercises t band ER Standing Exercise Name Bilateral together Resistance TB 1 Reps/Minutes 2x8 Comments cues elbows in at sides, scapular stabilization, and proper elbow angle. rows Standing Exercise Name with chin tucks Side bilateral Resistance TB2 Reps/Minutes 2x10 Comments cued no UT recruitment t band extension Standing Exercise Name shoulder extension Resistance TB2 Reps/Minutes 2x10 Comments cued no UT recruitment shoulder circles Reps/Minutes 2x10 PT-OP-T Assessment and Plan Start: 07/01/21 10:42 Freq: Status: Active Protocol: Document 10/06/21 13:45 AMB (Rec: 10/06/21 14:29 AMB [id number]) Physical Therapy Assessment Goals Two Impairment shoulder ROM limited Short Term Goal (STG) Snehal will improve her shoulder PROM flexion to 130 degrees. 120 degrees STG Duration PROGRESS MADE Hull [employer] De[employer] Remover Goal (LTG) Snehal will improve her shoulder AROM flexion to 130 degrees so that she can reach for objects above her head without pain. 110 degrees LTG Duration PROGRESS MADE One Impairment Ratings Analyst weakness Short Term Goal (STG) Snehal will improve her R cigar machine feeder strength to 30#. 08/26: 5# cigar machine feeder strength but pt has good pincher cigar machine feeder STG Duration 4 weeks- progress made Hull And Deck Remover Goal (LTG) Snehal will improve her cigar machine feeder strength so that she can hold her phone without dropping it. Seems to depend on elbow flexion. LTG Duration 8 weeks Assessment Summary Assessment T band continues to be hard to cigar machine feeder but Snehal feels her cigar machine feeder strength is improving, good AAROM with pulleys. Physical Therapy Plan Next Visit Focus/Plan Next Visit Plan Provide written HEP- Snehal has not been looking at written handouts.
--- NOTE | 2021-10-14 12:01 | PT.OTN ---
Current Diagnoses Primary osteoarthritis, right shoulder (10/14/21) Other specific joint derangements of unspecified shoulder, not elsewhere classified (10/14/21) Incomplete rotator cuff tear or rupture of right shoulder, not specified as traumatic (10/14/21) Physical Therapy Treatment Note PT-OP-A Visit Information Start: 07/01/21 10:42 Freq: Status: Active Protocol: Document 10/14/21 11:17 AMB (Rec: 10/14/21 11:55 AMB [id number]) Out-Patient Physical Therapy Visit Information Visit Information Visit Type Treatment Note Visit Start Time 11:15 Visit Stop Time 12:00 Total Visit Minutes 45 Visit Number 24 PT-OP-B Current Condition Start: 07/01/21 10:42 Freq: Status: Active Protocol: Document 07/05/21 12:58 AMB (Rec: 07/05/21 13:33 AMB [id number]) Current Condition History of Current Condition Onset Date ~2018, pt unsure Current Complaints R shoulder History of Current Condition Pain started a couple of years ago after hip replacements and using the walker more. Feels like it got a bit better with taking tylenol. Reports intermittent tingling from the shoulder down in the hand, puts the hand to sleep limited with gripping because of that. Pt does have a caregiver who drives for her, helps her with dressing/ bathing. RHD. Pt has a difficult time providing a history and attends the appointment without her caregiver or any family. Prior Treatments and Tests MRI 06/17 showed partial thickness supraspinatus tear, severe osteoarthritis, mild bursitis, fraying of the labrum, infraspinatus and sbuscapularis tendonopathy. Treatment Goals Patient/Caregiver Goals Pt would like to bulk picker something heavier than a glass of water, be able to put on clothes easier. Personal Factors Other Personal Factors That May Effect R and L THAs, asthma, Therapy/Recovery PT-OP-C Subjective Start: 07/01/21 10:42 Freq: Status: Active Protocol: Document 10/14/21 11:17 AMB (Rec: 10/14/21 11:55 AMB [id number]) OP-PT Subjective Patient Comments Patient Comments Snehal brings in her exercise sheets from home. PT-OP-G Mobility & Gait Start: 07/01/21 10:42 Freq: Status: Active Protocol: Document 07/05/21 13:00 AMB (Rec: 07/06/21 10:36 AMB [email or web address]) OP Gait Assessment Comments Gait Comments Magdalena ambulates with bilateral walking sticks, she states this does not increase her shoulder pain. PT-OP-J Posture/Palpation/Skin Start: 07/01/21 10:42 Freq: Status: Active Protocol: Document 07/05/21 13:00 AMB (Rec: 07/06/21 10:14 AMB [email or web address]) Palpation Assessment Location One Palpation Location R shoulder Palpation Findings Muscle Guarding,Tenderness Palpation Details Tenderness throughout shoulder mostly at anterior shoulder PT-OP-K Range of Motion Start: 07/01/21 10:42 Freq: Status: Active Protocol: Document 09/20/21 10:45 AMB (Rec: 09/20/21 10:53 AMB [id number]) Shoulder Goniometric Range of Motion Shoulder Right Active Flexion 110 Extension 60 Abduction 80 Left Active Shoulder ROM WFL Yes Testing Position Sitting Right Passive Flexion 120 Abduction 70 PT-OP-M Strength Start: 07/01/21 10:42 Freq: Status: Active Protocol: Document 07/05/21 13:00 AMB (Rec: 07/06/21 10:15 AMB [email or web address]) Hand Support Worker/Pinch Strength Hand Dominance Hand Dominance Right Hand Strength Right Support Worker (lbs) 0 PT-OP-Q Treatments Start: 07/01/21 10:42 Freq: Status: Active Protocol: Document 10/14/21 11:17 AMB (Rec: 10/14/21 11:55 AMB [id number]) Therapeutic Exercises Sitting Exercises isometrics Reps/Minutes 10 Comments ER/IR elbow flexion Equipment Used 2# Reps/Minutes 2x10 Comments all without assist- supinated and then pronated gripping Side right Equipment Used AROM/towel cues for full closure Reps/Minutes 5min Comments cues for palmar salesperson household appliances, closing hand protraction wand Side bilateral Resistance AAROM Equipment Used trek poles Reps/Minutes 5 reps x2 sets Comments painfree range, limited range, improved ROM with t spine ext ER wand Sitting Exercise Name Flexion, ER & ABD to 90 degrees with wand Side right Resistance AAROM Equipment Used wand Reps/Minutes 2x15 reps Comments cued tall posture Standing Exercises t band ER Standing Exercise Name Bilateral together Resistance TB 1 Reps/Minutes 2x8 Comments cues elbows in at sides, scapular stabilization, and proper elbow angle. PT-OP-T Assessment and Plan Start: 07/01/21 10:42 Freq: Status: Active Protocol: Document 10/14/21 11:17 AMB (Rec: 10/14/21 11:55 AMB [id number]) Physical Therapy Assessment Goals Two Impairment shoulder ROM limited Short Term Goal (STG) Snehal will improve her shoulder PROM flexion to 130 degrees. 120 degrees STG Duration PROGRESS MADE Final Coat Sprayer Goal (LTG) Snehal will improve her shoulder AROM flexion to 130 degrees so that she can reach for objects above her head without pain. 110 degrees LTG Duration PROGRESS MADE One Impairment Support Worker weakness Short Term Goal (STG) Snehal will improve her R salesperson household appliances strength to 30#. 08/26: 5# salesperson household appliances strength but pt has good pincher salesperson household appliances STG Duration 4 weeks- progress made Final Coat Sprayer Goal (LTG) Snehal will improve her salesperson household appliances strength so that she can hold her phone without dropping it. Seems to depend on elbow flexion. LTG Duration 8 weeks Assessment Summary Assessment Snehal is doing well with exercises but did need continued cues for form, despite written handouts. Physical Therapy Plan Next Visit Focus/Plan Next Visit Plan Review written finalized HEP
--- NOTE | 2021-10-17 11:11 | PT.OTN ---
Current Diagnoses Primary osteoarthritis, right shoulder (10/17/21) Other specific joint derangements of unspecified shoulder, not elsewhere classified (10/17/21) Incomplete rotator cuff tear or rupture of right shoulder, not specified as traumatic (10/17/21) Physical Therapy Treatment Note PT-OP-A Visit Information Start: 07/01/21 10:42 Freq: Status: Active Protocol: Document 10/17/21 10:30 AMB (Rec: 10/17/21 11:00 AMB [id number]) Out-Patient Physical Therapy Visit Information Visit Information Visit Type Treatment Note Visit Start Time 10:30 Visit Stop Time 11:15 Total Visit Minutes 45 Visit Number 25 PT-OP-B Current Condition Start: 07/01/21 10:42 Freq: Status: Active Protocol: Document 07/05/21 12:58 AMB (Rec: 07/05/21 13:33 AMB [id number]) Current Condition History of Current Condition Onset Date ~2018, pt unsure Current Complaints R shoulder History of Current Condition Pain started a couple of years ago after hip replacements and using the walker more. Feels like it got a bit better with taking tylenol. Reports intermittent tingling from the shoulder down in the hand, puts the hand to sleep limited with gripping because of that. Pt does have a caregiver who drives for her, helps her with dressing/ bathing. RHD. Pt has a difficult time providing a history and attends the appointment without her caregiver or any family. Prior Treatments and Tests MRI 06/17 showed partial thickness supraspinatus tear, severe osteoarthritis, mild bursitis, fraying of the labrum, infraspinatus and sbuscapularis tendonopathy. Treatment Goals Patient/Caregiver Goals Pt would like to nut picker something heavier than a glass of water, be able to put on clothes easier. Personal Factors Other Personal Factors That May Effect R and L THAs, asthma, Therapy/Recovery PT-OP-C Subjective Start: 07/01/21 10:42 Freq: Status: Active Protocol: Document 10/17/21 10:30 AMB (Rec: 10/17/21 11:00 AMB [id number]) OP-PT Subjective Patient Comments Patient Comments Snehal's shoulder is doing ok. PT-OP-G Mobility & Gait Start: 07/01/21 10:42 Freq: Status: Active Protocol: Document 07/05/21 13:00 AMB (Rec: 07/06/21 10:36 AMB [email or web address]) OP Gait Assessment Comments Gait Comments Magdalena ambulates with bilateral walking sticks, she states this does not increase her shoulder pain. PT-OP-J Posture/Palpation/Skin Start: 07/01/21 10:42 Freq: Status: Active Protocol: Document 07/05/21 13:00 AMB (Rec: 07/06/21 10:14 AMB [email or web address]) Palpation Assessment Location One Palpation Location R shoulder Palpation Findings Muscle Guarding,Tenderness Palpation Details Tenderness throughout shoulder mostly at anterior shoulder PT-OP-K Range of Motion Start: 07/01/21 10:42 Freq: Status: Active Protocol: Document 09/20/21 10:45 AMB (Rec: 09/20/21 10:53 AMB [id number]) Shoulder Goniometric Range of Motion Shoulder Right Active Flexion 110 Extension 60 Abduction 80 Left Active Shoulder ROM WFL Yes Testing Position Sitting Right Passive Flexion 120 Abduction 70 PT-OP-M Strength Start: 07/01/21 10:42 Freq: Status: Active Protocol: Document 07/05/21 13:00 AMB (Rec: 07/06/21 10:15 AMB [email or web address]) Hand Funding Coordinator/Pinch Strength Hand Dominance Hand Dominance Right Hand Strength Right Funding Coordinator (lbs) 0 PT-OP-Q Treatments Start: 07/01/21 10:42 Freq: Status: Active Protocol: Document 10/17/21 10:30 AMB (Rec: 10/17/21 11:00 AMB [id number]) Cardio Equipment Upper Body Ergometer (UBE) Duration (Minutes) 7 Seat Position standing Height 6 Other 1 fwd/ 1' back Therapeutic Exercises Sitting Exercises 1 Sitting Exercise Name wrist extension Comments 1#, 2x10 theraputty Sitting Exercise Name orange Reps/Minutes gripping, pinching 5 min pulleys Sitting Exercise Name in standing Side bilateral Reps/Minutes 8min Comments cues for L UE assist to move R UE Standing Exercises t band ER Standing Exercise Name Bilateral together Resistance TB 1 Reps/Minutes 2x8 Comments cues elbows in at sides, scapular stabilization, and proper elbow angle. t band extension Standing Exercise Name shoulder extension Resistance TB2 Reps/Minutes 2x10 Comments cued no UT recruitment PT-OP-T Assessment and Plan Start: 07/01/21 10:42 Freq: Status: Active Protocol: Document 10/17/21 10:30 AMB (Rec: 10/17/21 11:00 AMB [id number]) Physical Therapy Assessment Assessment Summary Assessment Snehal is doing well, pt's damage assessor continues to be limited bilaterally. Shoulder continues to be limited to shoulder level. Physical Therapy Plan Next Visit Focus/Plan Next Visit Plan plan on d/c- recheck ROM
--- NOTE | 2021-10-31 14:44 | PT.OPDS ---
Current Diagnoses Primary osteoarthritis, right shoulder (10/17/21) Other specific joint derangements of unspecified shoulder, not elsewhere classified (10/17/21) Incomplete rotator cuff tear or rupture of right shoulder, not specified as traumatic (10/17/21) Visit Care Team Role Provider Type Cliff Murphy MD Attending Provider Non-Staff Family Provider Primary Care Provider Referring Provider Specialty: [facility] Practice Address: [address] [place] [address] Email: Visit Number Visit Number 25 Discharge Summary PT-OP-B Current Condition Start: 07/01/21 10:42 Freq: Status: Active Protocol: Document 07/05/21 12:58 AMB (Rec: 07/05/21 13:33 AMB [id number]) Current Condition History of Current Condition Onset Date ~2018, pt unsure Current Complaints R shoulder History of Current Condition Pain started a couple of years ago after hip replacements and using the walker more. Feels like it got a bit better with taking tylenol. Reports intermittent tingling from the shoulder down in the hand, puts the hand to sleep limited with gripping because of that. Pt does have a caregiver who drives for her, helps her with dressing/ bathing. RHD. Pt has a difficult time providing a history and attends the appointment without her caregiver or any family. Prior Treatments and Tests MRI 06/17 showed partial thickness supraspinatus tear, severe osteoarthritis, mild bursitis, fraying of the labrum, infraspinatus and sbuscapularis tendonopathy. Treatment Goals Patient/Caregiver Goals Pt would like to pick out hand something heavier than a glass of water, be able to put on clothes easier. Personal Factors Other Personal Factors That May Effect R and L THAs, asthma, Therapy/Recovery PT-OP-C Subjective Start: 07/01/21 10:42 Freq: Status: Active Protocol: Document 10/17/21 10:30 AMB (Rec: 10/17/21 11:00 AMB [id number]) OP-PT Subjective Patient Comments Patient Comments Snehal's shoulder is doing ok. PT-OP-G Mobility & Gait Start: 07/01/21 10:42 Freq: Status: Active Protocol: Document 07/05/21 13:00 AMB (Rec: 07/06/21 10:36 AMB [email or web address]) OP Gait Assessment Comments Gait Comments Magdalena ambulates with bilateral walking sticks, she states this does not increase her shoulder pain. PT-OP-J Posture/Palpation/Skin Start: 07/01/21 10:42 Freq: Status: Active Protocol: Document 07/05/21 13:00 AMB (Rec: 07/06/21 10:14 AMB [email or web address]) Palpation Assessment Location One Palpation Location R shoulder Palpation Findings Muscle Guarding,Tenderness Palpation Details Tenderness throughout shoulder mostly at anterior shoulder PT-OP-K Range of Motion Start: 07/01/21 10:42 Freq: Status: Active Protocol: Document 09/20/21 10:45 AMB (Rec: 09/20/21 10:53 AMB [id number]) Shoulder Goniometric Range of Motion Shoulder Right Active Flexion 110 Extension 60 Abduction 80 Left Active Shoulder ROM WFL Yes Testing Position Sitting Right Passive Flexion 120 Abduction 70 PT-OP-M Strength Start: 07/01/21 10:42 Freq: Status: Active Protocol: Document 07/05/21 13:00 AMB (Rec: 07/06/21 10:15 AMB [email or web address]) Hand Chair Pad Maker/Pinch Strength Hand Dominance Hand Dominance Right Hand Strength Right Chair Pad Maker (lbs) 0 PT-OP-T Assessment and Plan Start: 07/01/21 10:42 Freq: Status: Active Protocol: Document 10/31/21 14:41 AMB (Rec: 10/31/21 14:44 AMB [id number]) Physical Therapy Assessment Goals Two Impairment shoulder ROM limited Short Term Goal (STG) Snehal will improve her shoulder PROM flexion to 130 degrees. STG Duration PROGRESS MADE 120 Nursing Home Goal (LTG) Snehal will improve her shoulder AROM flexion to 130 degrees so that she can reach for objects above her head without pain. 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 STG Duration 4 weeks- slight progress made Nursing Home Goal (LTG) Snehal will improve her environmental studies department chair strength so that she can hold her phone without dropping it. LTG Duration Variable dependent on how she is holding it/how long Assessment Summary Assessment Snehal was instructed in a detailed written HEP that she was able to do on alternating days. She notes improved shoulder function, although her environmental studies department chair strength has not improved as much. She continues to be limited in shoulder range above shoulder height, but given what is going on with her shoulder this may be as much as she can get. She was encouraged to continue with her exercises and follow up with her PCP as necessary. Physical Therapy Plan Discharge Physical Therapy Discharge Reasons Plateau in Progress
== END 2021-11-29 08:48 ==
LOC: PHYS 10:30
PROVIDERS: Family Provider Family Medicine; PCP Family Medicine; Referring Provider Family Medicine; Visit Provider Family Medicine
DX: M24.819 Other specific joint derangements of unspecified shoulder, not elsewhere classified (principal); M75.111 Incomplete rotator cuff tear or rupture of right shoulder, not specified as traumatic; M19.011 Primary osteoarthritis, right shoulder
CPT/HCPCS: 97110; 97140; 97162

== ENCOUNTER → 2023-11-21 15:41 | Outpatient (CLI) | payer OTHER, MEDICAID, SELFPAY ==
--- NOTE | 2023-11-21 | DI.CT.S_ITS ---
PROCEDURE: CT SINUS SCREEN WO CON INDICATIONS: Chronic pansinusitis TECHNIQUE: Noncontrast 3.0 mm axial images acquired from the frontal sinuses to the mid-sella, with coronal and sagittal reformats. For radiation dose reduction, the following was used: automated exposure control, adjustment of mA and/or kV according to patient size. COMPARISON: None. FINDINGS: Image quality: Excellent. Maxillary Sinuses: No bony remodeling or destruction. Polypoidal mucosal thickening versus mucous retention cyst left maxillary sinus measuring 10 x 7 mm (series 2, image 16). Ethmoid Air Cells: No bony remodeling or destruction. Sinuses are clear. Sphenoid Sinuses: No bony remodeling or destruction. Sinuses are clear. Frontal Sinuses: No bony remodeling or destruction. Sinuses are clear. Ostiomeatal Complexes: Ostiomeatal complexes are patent. No Adarsh cells. Miscellaneous: Visualized intra-orbital contents are normal. No claude bullosa or paradoxical turbinate curvature. No nasal septal deviation. Keros classification type 2. IMPRESSION: Mucous retention cyst versus polypoidal mucosal thickening of the left maxillary sinus. Dictated by: Robin Heath M.D. on 11/21/2023 at 16:39 Approved by: Robin Heath M.D. on 11/21/2023 at 16:41
== END ==
LOC: CT 15:42
PROVIDERS: Family Provider Family Medicine; PCP Family Medicine; Referring Provider Otolaryngology; Visit Provider Otolaryngology
DX: J32.4 Chronic pansinusitis (principal); J34.89 Other specified disorders of nose and nasal sinuses; J34.2 Deviated nasal septum; R09.82 Postnasal drip
CPT/HCPCS: 70486